=== PATIENT | male | born 1950 | race Caucasian/White ===

== ENCOUNTER → 2018-01-15 | Outpatient (CLI) | payer OTHER | END | disposition home or self-care (01) | LOC: KCIC US 08:06 | DX: I70.0 Atherosclerosis of aorta (principal); I25.10 Atherosclerotic heart disease of native coronary artery without angina pectoris; E04.2 Nontoxic multinodular goiter; J98.11 Atelectasis; R91.8 Other nonspecific abnormal finding of lung field; Z87.891 Personal history of nicotine dependence | CPT/HCPCS: 71250; 76770 ==

== ENCOUNTER → 2018-02-28 | Outpatient (CLI) | payer OTHER ==
[2018-02-28] MEDS: IOHEXOL 300 MG/ML 100ML VIAL. IV (10:44)
[2018-02-28] MEDS: IOHEXOL 240 MG/ML 50ML VIAL. PO (10:45)
== END | disposition home or self-care (01) ==
LOC: KCIC CT 09:23
DX: R19.02 Left upper quadrant abdominal swelling, mass and lump (principal); M51.36 Other intervertebral disc degeneration, lumbar region; M41.86 Other forms of scoliosis, lumbar region; I70.0 Atherosclerosis of aorta
CPT/HCPCS: 74178; Q9966; Q9967

== ENCOUNTER → 2018-08-27 | Outpatient (CLI) | payer OTHER ==
[~2018-08-27] MED LIST: AMLO10TA6 PO; CRESTOR10 MG PO; HYDR12.58 PO; IOHEXOL 240 MG/ML 50ML VIAL. PO ONE; IOHEXOL 300 MG/ML 100ML VIAL. IV ONE; PROAIR HFA8.5 GM INH
--- NOTE | 2018-08-27 15:33 | KCIC ---
CT ABD PELV W/ORAL IV CONTRAST Indication: Mass, identified on previous CT scan Exposure: One or more of the following individualized dose reduction techniques were utilized for this examination: 1. Automated exposure control 2. Adjustment of the mA and/or kV according to patient size 3. Use of iterative reconstruction technique. Comparison: February 28, 2018 Contrast: Intravenous contrast was given. Oral contrast was given. FINDINGS: Lower thorax: Lung bases are clear. Liver: Unremarkable Spleen: Unremarkable Pancreas: Unremarkable Adrenals: No evidence of mass. Kidneys: Small hypodense lesions of both kidneys, most likely cysts. The largest lesion on the left is stable since previous exam as is the largest lesion on the right. Urinary tracts: No hydronephrosis. Gallbladder: No calcified stone Lymph nodes: Small inguinal lymph nodes are stable. No pathologic lymph node enlargement. Vessels: * Aorta: Calcified. No aneurysm. * Major aortic branches: Calcifications at the major branches without occlusion. * Portal venous: Patent GI tract: Mild retained stool in the colon. No evidence of bowel obstruction. No evidence of acute colitis. Appendix is normal. Reproductive organs:No evidence of mass. Urinary bladder: Incompletely distended Peritoneum: No free fluid or pneumoperitoneum identified. Abdominal wall:Unremarkable Spine: Degenerative spondylosis. Right convexity scoliosis. Bones: Degenerative changes of both hips. Left upper quadrant mass is redemonstrated, measures slightly larger today. 6.9 cm transverse compared with 5.8 cm on similar previous slice. 5.2 cm AP compared with similar measurement previously. Measures 7.7 cm height, compared with 6.7 cm previously. IMPRESSION: Left upper quadrant mass has increased in size slightly since the previous study, with an overall similar morphology. Nonspecific, possible etiologies were discussed on the previous report. Electronically signed by: Yony Foster MD (08/27/2018 3:30 PM) [facility]
== END | disposition home or self-care (01) ==
LOC: KCIC CT 07:59
PROVIDERS: ATTEND Internal Medicine
DX: R19.02 Left upper quadrant abdominal swelling, mass and lump (principal); M47.896 Other spondylosis, lumbar region; M41.86 Other forms of scoliosis, lumbar region; I25.10 Atherosclerotic heart disease of native coronary artery without angina pectoris; Z87.891 Personal history of nicotine dependence
CPT/HCPCS: 74177; 82565; Q9966; Q9967

== ENCOUNTER 2018-10-23 15:59 | Emergency (ER) | payer OTHER ==
[~2018-10-23] VITALS: Ht 180.3 cm; Wt 106.6 kg
[~2018-10-23 15:59] MED LIST changes: -IOHEXOL 240 MG/ML 50ML VIAL. PO ONE; -IOHEXOL 300 MG/ML 100ML VIAL. IV ONE
[2018-10-23 16:16] VITALS: BP 164/81
[2018-10-23] MEDS ORDERED: MORPHINE SULFATE 10 MG/ML VIAL. IM ONE (16:30)
[2018-10-23] MEDS ORDERED: ONDANSETRON ODT 4 MG TAB.RAPDIS. PO ONE (16:30)
[2018-10-23] MEDS ORDERED: ORPHENADRINE CITRATE 60 MG/2 ML VIAL. IM ONE (16:30)
--- NOTE | 2018-10-23 16:30 | PHYS DOC ---
Past Medical History Past Medical History: Hypertension Past Surgical History: No Surgical History Alcohol Use: Rarely Drug Use: None Adult General Chief Complaint Chief Complaint: BACK PAIN OR INJURY HPI HPI Patient is a 68 year old male who presents with left-sided rib pain. Patient reports he slipped on the ice yesterday and fell onto his left side. He denies any hip or shoulder pain. He denies striking his head or loss of consciousness. He reports this afternoon, he coughed and felt something pop and has since had muscle spasm in that area. Review of Systems Review of Systems Constitutional: Denies fever or chills [] Respiratory: Denies shortness of breath [] Cardiovascular: No palpitations. GI: Denies abdominal pain, nausea, vomiting Musculoskeletal: Left posterior rib pain with muscle spasm Integument: Denies rash or skin lesions [] Neurologic: Denies headache, focal weakness or sensory changes [] All other systems were reviewed and found to be within normal limits, except as documented in this note. Current Medications Current Medications Current Medications Medications (Trade) Dose Ordered Sig/Philip Start Time Stop Time Status Last Admin Dose Admin Morphine Sulfate (Morphine Sulfate) 8 mg 1X ONCE 10/23/18 16:30 10/23/18 16:34 DC 10/23/18 17:01 8 MG Ondansetron HCl (Zofran Odt) 4 mg 1X ONCE 10/23/18 16:30 10/23/18 16:34 DC 10/23/18 16:59 4 MG Orphenadrine Citrate (Norflex) 60 mg 1X ONCE 10/23/18 16:30 10/23/18 16:34 DC 10/23/18 16:59 60 MG Allergies Allergies Allergies Coded Allergies Type Severity Reaction Last Updated Verified No Known Drug Allergies 02/28/18 No Physical Exam Physical Exam Constitutional: Well developed, well nourished, no acute distress, non-toxic appearance. [] HENT: Normocephalic, atraumatic Eyes: PERRLA, EOMI, conjunctiva normal, no discharge. [] Neck: Normal range of motion, no tenderness, supple, no stridor. [] Cardiovascular:Heart rate regular rhythm, no murmur [] Lungs & Thorax: Bilateral breath sounds clear to auscultation [] Skin: Warm, dry, no erythema, no rash. [] Back: Left posterior, lateral rib pain on palpation, muscle spasm over area of pain present. No tenderness Extremities: No tenderness, ROM intact Neurologic: Alert and oriented X 3, normal motor function, normal sensory function, no focal deficits noted. [] Psychologic: Affect normal, judgement normal, mood normal. [] Current Patient Data Vital Signs Vital Signs Date Time Temp Pulse Resp B/P (MAP) Pulse Ox O2 Delivery O2 Flow Rate FiO2 10/23/18 16:16 98.0 84 18 164/81 (108) 96 Room Air 98.0 EKG EKG [] Radiology/Procedures Radiology/Procedures PATIENT: SMITA COLON GACCOUNT: [id number]#: [id number] : 1950 LOCATION: ER AGE: 68 SEX: M EXAM STATUS: REG ER ORD. PHYSICIAN: NICOLASA JI APRN REASON: fall, pain PROCEDURE: RIBS LEFT AND PA CHEST Left RIBS with chest, 3 views, 10/23/2018: HISTORY: Fall, left-sided pain No left rib fracture is identified. There is no evidence of underlying pneumothorax, hemothorax or pulmonary infiltrate. The heart size is normal. There are mild scattered degenerative changes in the spine. IMPRESSION: No acute left rib abnormality is detected. Electronically signed by: Faizan Marcelino MD (10/23/2018 5:04 PM) [facility] DICTATED and SIGNED BY: FAIZAN MARCELINO MD DATE: 10/23/18 170 [] Course & Med Decision Making Course & Med Decision Making Pertinent Labs and Imaging studies reviewed. (See chart for details) Plan: Ice or heat, ibuprofen or Aleve, Lortab Rx, Flexeril Rx, follow-up with PCP, return precautions reviewed[] Dragon Disclaimer Dragon Disclaimer This electronic medical record was generated, in whole or in part, using a voice recognition dictation system. Departure Departure Impression: Primary Impression: Rib contusion Disposition: 01 HOME, SELF-CARE Condition: IMPROVED Referrals: DEQUAN OSPINA Jr, MD (PCP) Patient Instructions: Rib Contusion Scripts Hydrocodone/Apap 5-325 (NORCO 5-325 TABLET) 1 Each Tablet 1-2 TAB PO PRN Q6HRS PRN for PAIN, #20 TAB 0 Refills Prov: NICOLASA JI APRN 10/23/18 Cyclobenzaprine Hcl (CYCLOBENZAPRINE HCL) 10 Mg Tablet 1 TAB PO TID PRN for MUSCLE SPASMS, #30 TAB Prov: NICOLASA JI APRN 10/23/18 Problem Qualifiers Primary Impression: Rib contusion Encounter type: initial encounter Laterality: left Qualified Codes: S20.212A - Contusion of left front wall of thorax, initial encounter NICOLASA JI APRN Oct 23, 2018 16:30
--- NOTE | 2018-10-23 17:07 | RAD ---
Left RIBS with chest, 3 views, 10/23/2018: HISTORY: Fall, left-sided pain No left rib fracture is identified. There is no evidence of underlying pneumothorax, hemothorax or pulmonary infiltrate. The heart size is normal. There are mild scattered degenerative changes in the spine. IMPRESSION: No acute left rib abnormality is detected. Electronically signed by: Faizan Marcelino MD (10/23/2018 5:04 PM) [facility]
[2018-10-23] MEDS ORDERED: HYDR-3164 PO (17:11)
[2018-10-23] MEDS ORDERED: CYCL10TA2 PO (17:11)
== END 2018-10-23 17:25 | disposition home or self-care (01) ==
LOC: ER 15:59
DX: S20.212A Contusion of left front wall of thorax, initial encounter (principal); I10 Essential (primary) hypertension; W00.0XXA Fall on same level due to ice and snow, initial encounter; Y93.89 Activity, other specified; Y92.89 Other specified places as the place of occurrence of the external cause; Y99.8 Other external cause status
CPT/HCPCS: 71101; 96372; 99283; J2270; J2360; Q0162

== ENCOUNTER → 2019-01-14 | Outpatient (CLI) | payer OTHER ==
[2018-12-23 11:00] VITALS: BP 140/79
[~2019-01-14] MED LIST changes: +ALBU2.5V8 INH; -AMLO10TA6 PO; +AMLO10TA8 PO; +ASPI-630 PO; +BENA40TA3 PO; +CYCL10TA2 PO; +DOCU-109 PO; +HYDR-3164 PO; +IOHEXOL 240 MG/ML 50ML VIAL. PO ONE; +IOHEXOL 300 MG/ML 100ML VIAL. IV ONE; +MECL12.52 PO; +MECL25TA3 PO; +OMEG1CAP38 PO; +ONDA8TAB9 PO; +OXYC1TAB15 PO; -PROAIR HFA8.5 GM INH
--- NOTE | 2019-01-15 09:34 | KCIC ---
EXAM: CT Chest, Abdomen and Pelvis with IV contrast CLINICAL HISTORY: Malignant GI stromal tumor. Postop staging COMPARISON: 08/27/2018, 02/28/2018 CT chest 01/15/2018 TECHNIQUE: Helical CT of the chest, abdomen and pelvis was performed following the administration of intravenous contrast. Oral contrast was administered. Axial, coronal and sagittal reformatted images were generated. ---PQRS compliance statement - One or more of the following individualized dose reduction techniques were utilized for this study: 1. Automated exposure control 2. Adjustment of the mA and/or kV according to patient size 3. Use of iterative reconstruction technique--- FINDINGS: Chest: Linear opacities in the lingula and lower lobes likely scarring/atelectasis. A 4 mm groundglass nodule (series 01/03 image 39) in the posterior right lower lobe is stable to 01/15/2018. No suspicious lung nodule or mass is seen. No lobar consolidation. Vague groundglass opacities are seen in the right posterior paraspinal region adjacent to bulky lateral osteophytes. Coronary artery calcifications are seen. Heart is not enlarged. No pericardial effusion. Bilateral calcified thyroid nodules are seen including a 2.6 cm left thyroid nodule, grossly stable to prior CT 01/15/2018. No pleural effusion or pneumothorax. Prominent axillary lymph nodes are seen, not enlarged by size criteria. No thoracic lymphadenopathy by size criteria although prominent mediastinal and hilar lymph nodes are seen. For example a right pericardiac lymph node measures 7 mm short axis and a subcarinal lymph node measures 8 mm short axis. Abdomen and Pelvis: No focal liver lesion. Gallbladder is normal. No biliary ductal dilatation. Adrenal glands are normal. Pancreas is unremarkable. Symmetric nephrograms. Bilateral hypodense renal lesions are grossly stable to prior CT. No hydronephrosis or hydroureter. Changes of splenectomy are seen with small collection/fat infiltration inferior to the left hemidiaphragm measuring 4.4 x 1.7 cm (coronal series 9, image 47). Suture line is seen in the stomach immediately adjacent to this region of fat infiltration. This may represent postsurgical change from prior gastric mass/gastrointestinal stromal tumor resection. Moderate colonic stool content is seen. The appendix is not convincingly seen although no significant pericecal fat infiltration. No small or large bowel dilatation. No evidence for bowel obstruction. A few prominent mesenteric and retroperitoneal lymph nodes are seen, not enlarged by size criteria. The partially distended bladder is unremarkable. Dense atherosclerotic calcifications of aorta and main branches are seen. Bones: A few small sclerotic lesions are seen within the osseous structures, likely bone islands, unchanged. Degenerative changes of the spine are seen. No definite aggressive osseous lesion is seen. Old fracture of the left ninth and 10th ribs are seen. Rightward curvature of the lumbar spine apex L3. Apparent lucent lesion within the L1 vertebral body with internal trabeculated appearance is favored to represent a hemangioma and unchanged to 02/28/2018. IMPRESSION: 1. Postoperative changes of left gastric mass resection and splenectomy are seen. However there is fat infiltration and trace fluid in the operative bed, just below the left hemidiaphragm, possibly postsurgical although residual mass is not entirely excluded. Recommend close attention on follow-up. 2. No evidence for distant metastasis. No thoracic, abdominal or pelvic lymphadenopathy. 3. 4 mm right lower lobe lung nodule is stable. The additional smaller lung nodules seen on prior exam are not convincingly seen on today's examination. Electronically signed by: Gianfranco Lugo MD (01/15/2019 9:31 AM) [facility]
== END | disposition home or self-care (01) ==
LOC: KCIC CT 08:27
PROVIDERS: ATTEND Internal Medicine Hematology & Oncology
DX: C49.A2 Gastrointestinal stromal tumor of stomach (principal); R91.1 Solitary pulmonary nodule; I70.0 Atherosclerosis of aorta; E04.2 Nontoxic multinodular goiter; I25.10 Atherosclerotic heart disease of native coronary artery without angina pectoris; N28.89 Other specified disorders of kidney and ureter; I10 Essential (primary) hypertension; Z98.890 Other specified postprocedural states
CPT/HCPCS: 71260; 74177; Q9966; Q9967

== ENCOUNTER 2019-01-23 12:24 | Observation (INO) | payer OTHER ==
[~2019-01-23] VITALS: Ht 182.9 cm; Wt 99.4 kg
[~2019-01-23 12:24] MED LIST changes: -DOCU-109 PO; -IOHEXOL 240 MG/ML 50ML VIAL. PO ONE; -IOHEXOL 300 MG/ML 100ML VIAL. IV ONE; -MECL12.52 PO; -MECL25TA3 PO; -ONDA8TAB9 PO
--- NOTE | 2019-01-23 13:36 | EKG ---
[facility] [address] [place] [address] Test Date: 2019-01-23 Test Time: 12:39:53 Pat Name: SMITA COLON Department: Room: Gender: M Quick Technician: : 1950 Requested By: GHISLAINE MUNIZ Order Number: [id number] Reading MD: Veto Carreon MD Measurements Intervals [place] Rate: 82 P: 36 DC: 156 QRS: -1 QRSD: 96 T: 29 QT: 390 QTc: 459 Interpretive Statements SINUS RHYTHM NON-SPECIFIC ST/T CHANGES Electronically Signed On 01-28-2019 7:54:45 ORTHODONTIC LABORATORY TECHNICIAN by Veto Carreon MD
--- NOTE | 2019-01-23 13:39 | RAD ---
EXAM: Head CT without contrast. HISTORY: Dizziness. TECHNIQUE: Computed tomographic images of the head were obtained without contrast. *One or more of the following individualized dose reduction techniques were utilized for this examination: 1. Automated exposure control. 2. Adjustment of the mA and/or kV according to patient size. 3. Use of iterative reconstruction technique. COMPARISON: None. FINDINGS: There is no acute or subacute extra-axial or intraparenchymal hemorrhage. There is no mass effect or midline shift. There is no hydrocephalus. There are areas of decreased attenuation within the cerebral white matter, nonspecific and likely related to chronic small vessel disease. There are tiny right maxillary sinus mucous retention cysts. There is nonspecific fluid within the right mastoid air cells. No calvarial lesion is seen. The orbits are unremarkable. IMPRESSION: No acute intracranial findings. Electronically signed by: Marilyn Lopez MD (01/23/2019 1:36 PM) [facility]
[2019-01-23] MEDS ORDERED: MECLIZINE HCL 12.5 MG TABLET. PO ONE (14:30)
[2019-01-23] MEDS ORDERED: MECLIZINE HCL 12.5 MG TABLET. ONE (14:30)
[2019-01-23] MEDS ORDERED: ONDANSETRON PF 4 MG/2 ML VIAL. IV ONE (14:30)
[2019-01-23 14:34] LABS: BASO # 0.1 x10^3/uL (0.0-0.2); BASO % 1 % (0-3); EOS # 0.1 x10^3/uL (0.0-0.7); EOS % 1 % (0-3); HEMATOCRIT 41.4 % (39.0-53.0); HEMOGLOBIN 13.5 g/dL (13.0-17.5); LYMPH # 0.9 x10^3/uL (1.0-4.8); LYMPH % 8 % (24-48); MEAN CORPUSCULAR HEMOGLOBIN 30 pg (25-35); MEAN CORPUSCULAR HGB CONC 33 g/dL (31-37); MEAN CORPUSCULAR VOLUME 91 fL (79-100); MONO # 0.3 x10^3/uL (0.0-1.1); MONO % 3 % (0-9); NEUT # 9.7 x10^3uL (1.8-7.7); NEUT % 88 % (31-73); PLATELET COUNT 401 x10^3/uL (140-400); RED BLOOD COUNT 4.55 x10^6/uL (4.30-5.70); RED CELL DISTRIBUTION WIDTH 13.7 % (11.5-14.5)
--- NOTE | 2019-01-23 14:56 | PHYS DOC ---
Past Medical History Past Medical History: High Cholesterol, Hypertension, Other Additional Past Medical Histor: GIST TUMOR Past Surgical History: Other Additional Past Surgical Histo: SPLENECTOMY, PARTIAL STOMACH, GIST TUMOR Alcohol Use: None Drug Use: None Adult General Chief Complaint Chief Complaint: WEAKNESS/GENERALIZED HPI HPI 68-year-old male presenting the emergency department today with dizziness and lightheadedness along with nausea and started about 4:30 this morning. He denies any recent fall or headache. He describes his lightheadedness when he stands up. He has a past medical history of having a just tube or is currently undergoing chemotherapy. Review of systems is negative for chest pain shortness of breath abdominal pain fevers or chills. All other review of systems is negative unless otherwise noted in history of present illness. ED course: 68 yo male presenting the emergency department today with lightheadedness and dizziness. On arrival the patient's afebrile with normal heart rate. He is well-appearing on examination with a normal neurologic exam. Head CT is unremarkable along with CBC. Blood work is unremarkable along with urinalysis. Patient was able to relate in the emergency department without difficulty. Patient mildly improved with meclizine here in the emergency room. Physical exam suggestive of peripheral vertigo. Initially with plan to discharge the patient with oral meclizine. However after walking him he feels his vertigo come back. We will admit him and have neurology see him possible MRI. I spoke with Dr. Vela who accepts him for admission. Review of Systems Review of Systems SEE ABOVE. Current Medications Current Medications Current Medications Medications (Trade) Dose Ordered Sig/Philip Start Time Stop Time Status Last Admin Dose Admin Meclizine HCl (Antivert) 12.5 mg STK-MED ONCE 01/23/19 14:30 01/23/19 14:31 DC Ondansetron HCl (Zofran) 4 mg 1X ONCE 01/23/19 14:30 01/23/19 14:32 DC 01/23/19 14:35 4 MG Sodium Chloride 500 ml @ 500 mls/hr 1X ONCE 01/23/19 15:00 01/23/19 15:59 DC 01/23/19 15:00 500 MLS/HR Allergies Allergies Allergies Coded Allergies Type Severity Reaction Last Updated Verified Penicillins Allergy Intermediate 12/17/18 Yes simvastatin Allergy Unknown 01/23/19 Yes Physical Exam Physical Exam SEE ABOVE Constitutional: Well developed, well nourished, no acute distress, non-toxic appearance. HENT: Normocephalic, atraumatic, bilateral external ears normal, oropharynx moist, no oral exudates, nose normal. [] Eyes: PERRLA, EOMI, conjunctiva normal, no discharge. Neck: Normal range of motion, no tenderness, supple, no stridor. [] Cardiovascular:Heart rate regular rhythm, no murmur [] Lungs & Thorax: Bilateral breath sounds clear to auscultation Abdomen: Bowel sounds normal, soft, no tenderness, no masses, no pulsatile masses. Skin: Warm, dry, no erythema, no rash. [] Back: No tenderness, no CVA tenderness. Extremities: No tenderness, no cyanosis, no clubbing, ROM intact, no edema. [] Neurologic: Head impulse testing, nystagmus and skew is suggestive of peripheral vertigo. Patient has lateral rotatory denies diagnosed on lateral gaze to the right. No nystagmus when gazing to the left. Mental status: Awake oriented and alert x3 Cranial nerves: Extraocular movements intact, eyebrows kim bilaterally, smile symmetric, uvula elevation nl, shoulder shrug intact bilaterally, tongue protrusion normal DTRs: 2+ Sensation: equal and normal in all extremities Strength: 5/5 in upper and lower extremities bilaterally Psychologic: Affect normal, judgement normal, mood normal. [] Current Patient Data Vital Signs Vital Signs Date Time Temp Pulse Resp B/P (MAP) Pulse Ox O2 Delivery O2 Flow Rate FiO2 01/23/19 12:45 98.4 85 18 139/68 (91) 97 Room Air 98.4 Lab Values Laboratory Tests Test 01/23/19 14:20 01/23/19 14:50 01/23/19 16:25 White Blood Count 11.0 x10^3/uL (4.0-11.0) Red Blood Count 4.55 x10^6/uL (4.30-5.70) Hemoglobin 13.5 g/dL (13.0-17.5) Hematocrit 41.4 % (39.0-53.0) Mean Corpuscular Volume 91 fL (79-100) Mean Corpuscular Hemoglobin 30 pg (25-35) Mean Corpuscular Hemoglobin Concent 33 g/dL (31-37) Red Cell Distribution Width 13.7 % (11.5-14.5) Platelet Count 401 x10^3/uL (140-400) H Neutrophils (%) (Auto) 88 % (31-73) H Lymphocytes (%) (Auto) 8 % (24-48) L Monocytes (%) (Auto) 3 % (0-9) Eosinophils (%) (Auto) 1 % (0-3) Basophils (%) (Auto) 1 % (0-3) Neutrophils # (Auto) 9.7 x10^3uL (1.8-7.7) H Lymphocytes # (Auto) 0.9 x10^3/uL (1.0-4.8) L Monocytes # (Auto) 0.3 x10^3/uL (0.0-1.1) Eosinophils # (Auto) 0.1 x10^3/uL (0.0-0.7) Basophils # (Auto) 0.1 x10^3/uL (0.0-0.2) Segmented Neutrophils % 89 % (35-66) H Lymphocytes % 5 % (24-48) L Monocytes % 6 % (0-10) Platelet Estimate Increased (ADEQUATE) Polychromasia Slight Crenated Cell Present RBC Morphology Bizarre Forms Occ Sodium Level 144 mmol/L (136-145) Potassium Level 3.7 mmol/L (3.5-5.1) Chloride Level 108 mmol/L (98-107) H Carbon Dioxide Level 26 mmol/L (21-32) Anion Gap 10 (6-14) Blood Urea Nitrogen 12 mg/dL (8-26) Creatinine 0.8 mg/dL (0.7-1.3) Estimated GFR (Cockcroft-Gault) 96.7 BUN/Creatinine Ratio 15 (6-20) Glucose Level 121 mg/dL (70-99) H Calcium Level 8.8 mg/dL (8.5-10.1) Total Bilirubin 0.2 mg/dL (0.2-1.0) Aspartate Amino Transferase (AST) 16 U/L (15-37) Alanine Aminotransferase (ALT) 26 U/L (16-63) Alkaline Phosphatase 96 U/L (46-116) Troponin I Quantitative < 0.017 ng/mL (0.000-0.055) Total Protein 6.4 g/dL (6.4-8.2) Albumin 3.4 g/dL (3.4-5.0) Albumin/Globulin Ratio 1.1 (1.0-1.7) Urine Color Yellow Urine Clarity Clear Urine pH 7.5 Urine Specific [place] 1.020 Urine Protein Negative mg/dL (NEG-TRACE) Urine Glucose (UA) 100 mg/dL (NEG) Urine Ketones (Stick) 15 mg/dL (NEG) Urine Blood Negative (NEG) Urine Nitrite Negative (NEG) Urine Bilirubin Negative (NEG) Urine Urobilinogen Dipstick 0.2 mg/dL (0.2 mg/dL) Urine Leukocyte Esterase Negative (NEG) Urine RBC 0 /HPF (0-2) Urine WBC Occ /HPF (0-4) Urine Squamous Epithelial Cells Occ /LPF Urine Bacteria 0 /HPF (0-FEW) Urine Mucus Slight /LPF Laboratory Tests 01/23/19 14:20 Laboratory Tests 01/23/19 14:50 EKG EKG [] Radiology/Procedures Radiology/Procedures [] Course & Med Decision Making Course & Med Decision Making Pertinent Labs and Imaging studies reviewed. (See chart for details) [] Dragon Disclaimer Dragon Disclaimer This electronic medical record was generated, in whole or in part, using a voice recognition dictation system. Departure Departure Impression: Primary Impression: Vertigo Additional Impression: Peripheral vertigo Disposition: 09 ADMITTED INPATIENT Condition: STABLE Referrals: JAYME SINGH MD (PCP) Patient Instructions: Vertigo Scripts Meclizine Hcl (MECLIZINE HCL) 25 Mg Tablet 25 MG PO PRN Q24HRS PRN for DIZZINESS, #10 TAB Prov: GHISLAINE MUNIZ MD 01/23/19 Problem Qualifiers GHISLAINE MUNIZ MD Jan 23, 2019 14:56
[2019-01-23] MEDS ORDERED: IV NORMAL SALINE 500ML BAG 500 ML IV ONE (15:00)
[2019-01-23 15:08] LABS: CALCIUM 8.8 mg/dL (8.5-10.1); CREATININE 0.8 mg/dL (0.7-1.3); GFR 96.7; POTASSIUM 3.7 mmol/L (3.5-5.1)
[2019-01-23 15:16] LABS: ALBUMIN 3.4 g/dL (3.4-5.0); ALBUMIN/GLOBULIN RATIO 1.1 (1.0-1.7); TOTAL BILIRUBIN 0.2 mg/dL (0.2-1.0); TOTAL PROTEIN 6.4 g/dL (6.4-8.2)
[2019-01-23 16:03] LABS: % LYMPHS 5 % (24-48); % MONOS 6 % (0-10); % SEGS 89 % (35-66); PLT ESTIMATE INCREASED (ADEQUATE); POLYCHROMASIA SLIGHT
[2019-01-23 16:04] LABS: BIZZARE CELLS OCC
[2019-01-23 16:38] LABS: BILIRUBIN,URINE NEGATIVE (NEG); CLARITY,URINE CLEAR; COLOR,URINE YELLOW; NITRITE,URINE NEGATIVE (NEG); PH,URINE 7.5; PROTEIN,URINE NEGATIVE (NEG-TRACE); UROBILINOGEN,URINE 0.2 mg/dL (0.2 mg/dL)
[2019-01-23 16:47] LABS: BACTERIA,URINE 0 /HPF (0-FEW); RBC,URINE 0 /HPF (0-2); SQUAMOUS EPITHELIAL CELL,UR OCC /LPF; WBC,URINE OCC /HPF (0-4)
[2019-01-23] MEDS ORDERED: MECL25TA3 PO (16:52)
[2019-01-23] MEDS ORDERED: IV NORMAL SALINE 1000ML BAG 1,000 ML IV SCH (17:38)
[2019-01-23] MEDS ORDERED: ONDANSETRON PF 4 MG/2 ML VIAL. IV PRN ×2 (17:45→21:45)
[2019-01-23] MEDS ORDERED: MORPHINE SULFATE 2 MG/ML VIAL. IV PRN (17:45)
--- NOTE | 2019-01-23 19:18 | PDOC2 ---
NEUROLOGY CONSULT Date of Admission Date of Admission DATE: 01/23/19 TIME: 18:57 Reason for Consult Reason for Consult: IMPRESSION: Sudden onset severe dizziness. Vertigo. Ataxia. Gait instability. 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 HTN. HLD. 4 mm right LL nodule, stable. Over weight. RECOMMENDATIONS/PLAN: ASA 325 mg daily. Brain MRI w/o contrast. Meclizine 12.5 mg tid. Lab: see orders. Swallow test. Further evaluation considered. HISTORY OF THE PRESENT ILLNESS: 68-year-old male patient with above medical diseases and gastric mass received surgery and splenectomy in 11/2018 and received chem so far. He was last seen normal last night but woke up around 5;30 am this morning with symptoms of severe dizziness, vertigo, gait instability, ataxic gait. He came to the ER of [facility] after 8-9 hours after symptoms onset. No sensory or motor deficits noted. PAST MEDICAL HISTORY: High Cholesterol, Hypertension, GIST TUMOR PAST SURGERY HISTORY: SPLENECTOMY, PARTIAL STOMACH, GIST TUMOR. ALLERGY: Unknown MEDICATIONS: Refer to [facility] FAMILY HISTORY: His mother had breast cancer. SOCIAL HISTORY: Lives with his at home. Denies recent smoking, drinking, and illicit drug use. He smoked 1.5 pack of cigarettes a day for about 30 years but quit several years ago. REVIEW OF SYSTEMS: Constitutional: No cachexia. Head: No traumatic brain or head injury. Skin: No edema, or rash. Ear: No infection. Eyes: No vision loss or color blindness. Nose: No bleeding or purulent discharges. Hearing: No hearing decrease. Neck: No injury. Cardiac: HTN, HLD. Pulmonary: Former smoker. Small right LL nodule.. GI: Gastric mass s/o surgery.. Urinary/genital: No dysuria, incontinence, urinary retention. Endocrinologic: No cousin face, craniofacial dysmorphism, polydactyly.. Skeletomuscular: No muscular atrophy, deformity. Neurological: see HP. Psychiatric: Denies drug use/abuse. Otherwise, not [id number] review of systems. PHYSICAL EXAMINATION: General appearance is in acute distress. HEENT: Normocephalic and nontraumatic. Eyes, nose, ears, and throat are unremarkable. Neck is supple. No lymphadenopathy. No crepitus. Cardiovascular: S1, S2, regular rate and rhythm. Pulmonary: Clear to auscultation bilaterally. Abdomen: Bowel sounds are positive. Extremities: No rash, lesions, or edema. No restriction of range of motion NEUROLOGICAL EXAMINATION: Awake. Oriented to time, place and person. PERRL. No nystagmus noted. EOMI. CN: no focal findings. Muscle tone: within normal. Muscle strength: 5- DTR: 2 Plantar reflex: Flexor response bilaterally Gait: not examined in bed. Sensory exam: no abnormal findings. No cerebellar signs elicited. F-T-N test fine. Current Medications Current Medications Current Medications Ondansetron HCl (Zofran) 4 mg 1X ONCE IV Last administered on 01/23/19at 14:35 ; Start 01/23/19 at 14:30; Stop 01/23/19 at 14:32; Status DC Meclizine HCl (Antivert) 12.5 mg 1X ONCE PO Last administered on 01/23/19at 14: 35; Start 01/23/19 at 14:30; Stop 01/23/19 at 14:32; Status DC Meclizine HCl (Antivert) 12.5 mg STK-MED ONCE .ROUTE ; Start 01/23/19 at 14:30; Stop 01/23/19 at 14:31; Status DC Sodium Chloride 500 ml @ 500 mls/hr 1X ONCE IV Last administered on at 15:00; Start 01/23/19 at 15:00; Stop 01/23/19 at 15:59; Status DC Ondansetron HCl (Zofran) 4 mg PRN Q8HRS PRN IV NAUSEA/VOMITING; Start 01/23/19 at 17:45; Stop 01/24/19 at 17:44 Morphine Sulfate (Morphine Sulfate) 2 mg PRN Q2HR PRN IV PAIN; Start 01/23/19 at 17:45; Stop 01/24/19 at 17:44 Sodium Chloride 1,000 ml @ 100 mls/hr Q10H IV ; Start 01/23/19 at 17:38; Stop 01/24/19 at 17:37 Active Scripts Active Meclizine Hcl 25 Mg Tablet 25 Mg PO PRN Q24HRS PRN Percocet 5-325 Mg Tablet (Oxycodone/Acetaminophen) 1 Each Tablet 1 Tab PO PRN Q4HRS PRN Reported Benazepril Hcl 40 Mg Tablet 1 Tab PO DAILY Aspirin 81 Mg Tab.chew 1 Tab PO DAILY Hydrochlorothiazide Tablet (Hydrochlorothiazide) 12.5 Mg Tablet 1 Tab PO DAILY Amlodipine Besylate 10 Mg Tablet 10 Mg PO DAILY Crestor (Rosuvastatin Calcium) 10 Mg Tablet 1 Tab PO QHS Allergies Allergies: Allergies Coded Allergies Type Severity Reaction Last Updated Verified Penicillins Allergy Intermediate 12/17/18 Yes simvastatin Allergy Unknown 01/23/19 Yes ROS Review of System The patient denies any associated fevers, chills, headache, ear pain, rhinorrhea , sore throat, stiff neck, productive cough, chest pain, shortness of breath, back or flank pain, abdominal pain, nausea, vomiting, diarrhea, constipation, dysuria, rash, numbness, weakness, tingling, incontinence, difficulty ambulating, or diaphoresis. Physical Exam Physical Exam General: Well developed, well nourished, no acute distress, well appearing HEENT: Pupils equally round and reactive to light, EOMI, no discharge, normal conjunctiva Neck: Supple, no nuchal rigidity, no JVD, trachea midline, no tenderness Cardiac: RRR, no murmurs, no gallops, no rubs Chest/Lungs: CTAB, no wheeze, no rhonchi, no crackles Abdomen: soft, non-distended, no guarding, no peritoneal signs, non-tender Back: No tenderness Extremities: no edema, pulses intact, non-tender,capillary refill <3 sec bilateral upper and lower extremities, Neuro: Alert and oriented x 4, no focal deficits, normal speech Vitals Vitals: Vital Signs Date Time Temp Pulse Resp B/P (MAP) Pulse Ox O2 Delivery O2 Flow Rate FiO2 01/23/19 16:56 86 20 97 01/23/19 12:45 98.4 139/68 (91) Room Air 98.4 Labs Labs Laboratory Tests Test 01/23/19 14:20 01/23/19 14:50 01/23/19 16:25 White Blood Count 11.0 x10^3/uL (4.0-11.0) Red Blood Count 4.55 x10^6/uL (4.30-5.70) Hemoglobin 13.5 g/dL (13.0-17.5) Hematocrit 41.4 % (39.0-53.0) Mean Corpuscular Volume 91 fL (79-100) Mean Corpuscular Hemoglobin 30 pg (25-35) Mean Corpuscular Hemoglobin Concent 33 g/dL (31-37) Red Cell Distribution Width 13.7 % (11.5-14.5) Platelet Count 401 x10^3/uL (140-400) Neutrophils (%) (Auto) 88 % (31-73) Lymphocytes (%) (Auto) 8 % (24-48) Monocytes (%) (Auto) 3 % (0-9) Eosinophils (%) (Auto) 1 % (0-3) Basophils (%) (Auto) 1 % (0-3) Neutrophils # (Auto) 9.7 x10^3uL (1.8-7.7) Lymphocytes # (Auto) 0.9 x10^3/uL (1.0-4.8) Monocytes # (Auto) 0.3 x10^3/uL (0.0-1.1) Eosinophils # (Auto) 0.1 x10^3/uL (0.0-0.7) Basophils # (Auto) 0.1 x10^3/uL (0.0-0.2) Segmented Neutrophils % 89 % (35-66) Lymphocytes % 5 % (24-48) Monocytes % 6 % (0-10) Platelet Estimate Increased (ADEQUATE) Polychromasia Slight Crenated Cell Present RBC Morphology Bizarre Forms Occ Sodium Level 144 mmol/L (136-145) Potassium Level 3.7 mmol/L (3.5-5.1) Chloride Level 108 mmol/L (98-107) Carbon Dioxide Level 26 mmol/L (21-32) Anion Gap 10 (6-14) Blood Urea Nitrogen 12 mg/dL (8-26) Creatinine 0.8 mg/dL (0.7-1.3) Estimated GFR (Cockcroft-Gault) 96.7 BUN/Creatinine Ratio 15 (6-20) Glucose Level 121 mg/dL (70-99) Calcium Level 8.8 mg/dL (8.5-10.1) Total Bilirubin 0.2 mg/dL (0.2-1.0) Aspartate Amino Transf (AST/SGOT) 16 U/L (15-37) Alanine Aminotransferase (ALT/SGPT) 26 U/L (16-63) Alkaline Phosphatase 96 U/L (46-116) Troponin I Quantitative < 0.017 ng/mL (0.000-0.055) Total Protein 6.4 g/dL (6.4-8.2) Albumin 3.4 g/dL (3.4-5.0) Albumin/Globulin Ratio 1.1 (1.0-1.7) Urine Color Yellow Urine Clarity Clear Urine pH 7.5 Urine Specific [place] 1.020 Urine Protein Negative mg/dL (NEG-TRACE) Urine Glucose (UA) 100 mg/dL (NEG) Urine Ketones (Stick) 15 mg/dL (NEG) Urine Blood Negative (NEG) Urine Nitrite Negative (NEG) Urine Bilirubin Negative (NEG) Urine Urobilinogen Dipstick 0.2 mg/dL (0.2 mg/dL) Urine Leukocyte Esterase Negative (NEG) Urine RBC 0 /HPF (0-2) Urine WBC Occ /HPF (0-4) Urine Squamous Epithelial Cells Occ /LPF Urine Bacteria 0 /HPF (0-FEW) Urine Mucus Slight /LPF Laboratory Tests Test 01/23/19 14:20 01/23/19 14:50 01/23/19 16:25 White Blood Count 11.0 x10^3/uL (4.0-11.0) Red Blood Count 4.55 x10^6/uL (4.30-5.70) Hemoglobin 13.5 g/dL (13.0-17.5) Hematocrit 41.4 % (39.0-53.0) Mean Corpuscular Volume 91 fL (79-100) Mean Corpuscular Hemoglobin 30 pg (25-35) Mean Corpuscular Hemoglobin Concent 33 g/dL (31-37) Red Cell Distribution Width 13.7 % (11.5-14.5) Platelet Count 401 x10^3/uL (140-400) Neutrophils (%) (Auto) 88 % (31-73) Lymphocytes (%) (Auto) 8 % (24-48) Monocytes (%) (Auto) 3 % (0-9) Eosinophils (%) (Auto) 1 % (0-3) Basophils (%) (Auto) 1 % (0-3) Neutrophils # (Auto) 9.7 x10^3uL (1.8-7.7) Lymphocytes # (Auto) 0.9 x10^3/uL (1.0-4.8) Monocytes # (Auto) 0.3 x10^3/uL (0.0-1.1) Eosinophils # (Auto) 0.1 x10^3/uL (0.0-0.7) Basophils # (Auto) 0.1 x10^3/uL (0.0-0.2) Segmented Neutrophils % 89 % (35-66) Lymphocytes % 5 % (24-48) Monocytes % 6 % (0-10) Platelet Estimate Increased (ADEQUATE) Polychromasia Slight Crenated Cell Present RBC Morphology Bizarre Forms Occ Sodium Level 144 mmol/L (136-145) Potassium Level 3.7 mmol/L (3.5-5.1) Chloride Level 108 mmol/L (98-107) Carbon Dioxide Level 26 mmol/L (21-32) Anion Gap 10 (6-14) Blood Urea Nitrogen 12 mg/dL (8-26) Creatinine 0.8 mg/dL (0.7-1.3) Estimated GFR (Cockcroft-Gault) 96.7 BUN/Creatinine Ratio 15 (6-20) Glucose Level 121 mg/dL (70-99) Calcium Level 8.8 mg/dL (8.5-10.1) Total Bilirubin 0.2 mg/dL (0.2-1.0) Aspartate Amino Transf (AST/SGOT) 16 U/L (15-37) Alanine Aminotransferase (ALT/SGPT) 26 U/L (16-63) Alkaline Phosphatase 96 U/L (46-116) Troponin I Quantitative < 0.017 ng/mL (0.000-0.055) Total Protein 6.4 g/dL (6.4-8.2) Albumin 3.4 g/dL (3.4-5.0) Albumin/Globulin Ratio 1.1 (1.0-1.7) Urine Color Yellow Urine Clarity Clear Urine pH 7.5 Urine Specific [place] 1.020 Urine Protein Negative mg/dL (NEG-TRACE) Urine Glucose (UA) 100 mg/dL (NEG) Urine Ketones (Stick) 15 mg/dL (NEG) Urine Blood Negative (NEG) Urine Nitrite Negative (NEG) Urine Bilirubin Negative (NEG) Urine Urobilinogen Dipstick 0.2 mg/dL (0.2 mg/dL) Urine Leukocyte Esterase Negative (NEG) Urine RBC 0 /HPF (0-2) Urine WBC Occ /HPF (0-4) Urine Squamous Epithelial Cells Occ /LPF Urine Bacteria 0 /HPF (0-FEW) Urine Mucus Slight /LPF RAVIN MCLEOD MD Jan 23, 2019 19:18
[2019-01-23 19:25] VITALS: BP 142/75
[2019-01-23] MEDS: MECLIZINE HCL 12.5 MG TABLET. PO SCH (19:51)
[2019-01-23] MEDS: ASPIRIN 325 MG TABLET PO SCH (19:51)
[2019-01-23] MEDS ORDERED: ONDA8TAB9 PO (19:58)
--- NOTE | 2019-01-23 21:16 | PDOC1 ---
History and Physical Date of Admission Date of Admission DATE: 01/23/19 TIME: 21:16 Identification/Chief Complaint Chief Complaint seen in er woke up around 5;30 am this morning with symptoms of severe dizziness, vertigo, gait instability, ataxic gait. He came to the ER of [facility] after 8-9 hours after symptoms onset, unable to ambulate out of er this PM Past Medical History Past Medical History Past Medical History Cardiovascular: HTN Pulmonary: No pertinent hx GI: No pertinent hx Heme/Onc: GIST Tumor Hepatobiliary: No pertinent hx Psych: No pertinent hx Past Surgical History Past Surgical History: GASTRIC RESECTION Family History Family History he is retired from [employer] Family History: Coronary Artery Disease Social History Smoke: Quit ALCOHOL: rare OPERATIVE NOTE Date: Date: Dec 17, 2018 Pre-Op Diagnosis: Gastric tumor, spindle cell Post-Op Diagnosis: same, favor GIST Procedure Performed: Laparoscopic converted to open partial gastrectomy, splenectomy Surgeon: Marshall Pérez Asst: Dr. Carranza Anesthesia Type: GETA plus local Blood Loss: 550 Specimans Obtained: stomach, mass and spleen en bloc, additional gastric margin Findings: Moderated size (6cm) mass appearing to arise from wall of stomach on the superior aspect of the gastric greater curvature, adherent to spleen Cardiovascular: HTN Pulmonary: No pertinent hx GI: No pertinent hx Heme/Onc: No pertinent hx Hepatobiliary: No pertinent hx Psych: No pertinent hx Renal/: No pertinent hx Past Surgical History Past Surgical History: No pertinent history Family History Family History: Coronary Artery Disease, Hypertension Social History Smoke: Quit ALCOHOL: rare Drugs: None Current Problem List Problem List Problems Medical Problems: (1) Peripheral vertigo Status: Acute (2) Vertigo Status: Acute Current Medications Current Medications Current Medications Ondansetron HCl (Zofran) 4 mg 1X ONCE IV Last administered on 01/23/19at 14:35 ; Start 01/23/19 at 14:30; Stop 01/23/19 at 14:32; Status DC Meclizine HCl (Antivert) 12.5 mg 1X ONCE PO Last administered on 01/23/19at 14: 35; Start 01/23/19 at 14:30; Stop 01/23/19 at 14:32; Status DC Meclizine HCl (Antivert) 12.5 mg STK-MED ONCE .ROUTE ; Start 01/23/19 at 14:30; Stop 01/23/19 at 14:31; Status DC Sodium Chloride 500 ml @ 500 mls/hr 1X ONCE IV Last administered on at 15:00; Start 01/23/19 at 15:00; Stop 01/23/19 at 15:59; Status DC Ondansetron HCl (Zofran) 4 mg PRN Q8HRS PRN IV NAUSEA/VOMITING; Start 01/23/19 at 17:45; Stop 01/24/19 at 17:44 Morphine Sulfate (Morphine Sulfate) 2 mg PRN Q2HR PRN IV PAIN; Start 01/23/19 at 17:45; Stop 01/24/19 at 17:44 Sodium Chloride 1,000 ml @ 100 mls/hr Q10H IV Last administered on 01/23/19at 19:40; Start 01/23/19 at 17:38; Stop 01/24/19 at 17:37 Meclizine HCl (Antivert) 12.5 mg TID PO Last administered on 01/23/19at 19:51; Start 01/23/19 at 21:00 Aspirin (Jesica Aspirin) 325 mg [id number] PO Last administered on 01/23/19at 19: 51; Start 01/23/19 at 19:30 Active Scripts Active Reported Zofran (Ondansetron Hcl) 8 Mg Tablet 1 Tab PO Q8HRS Benazepril Hcl 40 Mg Tablet 1 Tab PO DAILY Aspirin 81 Mg Tab.chew 1 Tab PO DAILY Hydrochlorothiazide Tablet (Hydrochlorothiazide) 12.5 Mg Tablet 1 Tab PO DAILY Amlodipine Besylate 10 Mg Tablet 10 Mg PO DAILY Crestor (Rosuvastatin Calcium) 10 Mg Tablet 1 Tab PO QHS Allergies Allergies: Coded Allergies: Penicillins (Verified Allergy, Intermediate, 12/17/18) simvastatin (Verified Allergy, Unknown, 01/23/19) MUSCLE SORENESS ROS General: No: Chills, Night Sweats, Fatigue, Malaise, Appetite, Other PSYCHOLOGICAL ROS: No: Anxiety, Behavioral Disorder, Concentration difficultie , Decreased libido, Depression, Disorientation, Hallucinations, Hostility, Irritablity, Memory difficulties, Mood Swings, Obsessive thoughts, Physical abuse, Sexual abuse, Sleep disturbances, Suicidal ideation, Other Eyes: No Blurry vision, No Decreased vision, No Double vision, No Dry eyes, No Excessive tearing, No Eye Pain, No Itchy Eyes, No Loss of vision, No Photophobia , No Scotomata, No Uses contacts, No Uses glasses, No Other HEENT: No: Heacaches, Visual Changes, Hearing change, Nasal congestion, Nasal discharge, Oral lesions, Sinus pain, Sore Throat, Epistaxis, Sneezing, Snoring, Tinnitus, Vertigo, Vocal changes, Other ALLERGY AND IMMUNOLOGY: No: Hives, Insect Bite Sensitivity, Itchy/Watery Eyes, Nasal Congestion, Post Nasal Drip, Seasonal Allergies, Other Hematological and Lymphatic: No: Bleeding Problems, Blood Clots, Blood Transfusions, Brusing, Night Sweats, Pallor, Swollen Lymph Nodes, Other ENDOCRINE: No: Breast Changes, Galactorrhea, Hair Pattern Changes, Hot Flashes , Malaise/lethargy, Mood Swings, Palpitations, Polydipsia/polyuria, Skin Changes , Temperature Intolerance, Unexpected Weight Changes, Other Respiratory: No: Cough, Hemoptysis, Orthopnea, Pleuritic Pain, Shortness of breath, SOB with excertion, Sputum Changes, Stridor, Tachypnea, Wheezing, Other Cardiovascular: No Chest Pain, No Palpitations, No Orthopnea, No Paroxysmal Noc. Dyspnea, No Edema, No Lt Headedness, No Other Gastrointestinal: No Nausea, No Vomiting, No Abdominal Pain, No Diarrhea, No Constipation, No Melena, No Hematochezia, No Other Genitourinary: No Dysuria, No Frequency, No Incontinence, No Hematuria, No Retention, No Discharge, No Urgency, No Pain, No Flank Pain, No Other, No , No , No , No , No , No , No Musculoskeletal: Yes Gait Disturbance; No Joint Pain, No Joint Stiffness, No Joint Swelling, No Muscle Pain, No Muscular Weakness, No Pain In:, No Swelling In:, No Other Neurological: Yes Dizziness, Yes Impaired Coord/balance; No Behavorial Changes, No Bowel/Bladder ControlChng, No Confusion, No Gait Disturbance, No Headaches, No Memory Loss, No Numbness/Tingling, No Seizures, No Speech Problems, No Tremors, No Visual Changes, No Weakness, No Other Skin: No Dry Skin, No Eczema, No Hair Changes, No Lumps, No Mole Changes, No Mottling, No Nail Changes, No Pruritus, No Rash, No Skin Lesion Changes, No Other, No Acne Physical Exam Physical Exam Constitutional: Well developed, well nourished, mod acute distress, non-toxic appearance. HENT: Normocephalic, atraumatic, bilateral external ears normal, oropharynx moist, no oral exudates, nose normal. [] Eyes: PERRLA, EOMI, conjunctiva normal, no discharge. Neck: Normal range of motion, no tenderness, supple, no stridor. [] Cardiovascular:Heart rate regular rhythm, no murmur [] Lungs & Thorax: Bilateral breath sounds clear to auscultation Abdomen: Bowel sounds normal, soft, no tenderness, no masses, no pulsatile masses. Skin: Warm, dry, no erythema, no rash. [] Back: No tenderness, no CVA tenderness. Extremities: No tenderness, no cyanosis, no clubbing, ROM intact, no edema. [] Neurologic: Head impulse testing, nystagmus / suggestive of peripheral vertigo. Patient has lateral rotatory nystagmus lateral gaze to the right. No nystagmus when gazing to the lef General: Alert, Oriented X3, Cooperative, moderate distress HEENT: Atraumatic, PERRLA, EOMI, Mucous membr. moist/pink Lungs: Clear to auscultation, Normal air movement Heart: RRR, no thrills Breasts: Not examined Abdomen: Normal bowel sounds, Soft Rectal Exam: not examined Extremities: No clubbing, No cyanosis, No edema Skin: No rashes Neuro: Normal speech, Strength at 5/5 X4 ext, Normal tone, Cranial nerves 3-12 NL Psych/Mental Status: Mental status NL, Mood NL Vitals Vitals Vital Signs Date Time Temp Pulse Resp B/P (MAP) Pulse Ox O2 Delivery O2 Flow Rate FiO2 01/23/19 18:30 85 18 98 01/23/19 12:45 98.4 139/68 (91) Room Air 98.4 Labs Labs Laboratory Tests Test 01/23/19 14:20 01/23/19 14:50 01/23/19 16:25 White Blood Count 11.0 x10^3/uL (4.0-11.0) Red Blood Count 4.55 x10^6/uL (4.30-5.70) Hemoglobin 13.5 g/dL (13.0-17.5) Hematocrit 41.4 % (39.0-53.0) Mean Corpuscular Volume 91 fL (79-100) Mean Corpuscular Hemoglobin 30 pg (25-35) Mean Corpuscular Hemoglobin Concent 33 g/dL (31-37) Red Cell Distribution Width 13.7 % (11.5-14.5) Platelet Count 401 x10^3/uL (140-400) Neutrophils (%) (Auto) 88 % (31-73) Lymphocytes (%) (Auto) 8 % (24-48) Monocytes (%) (Auto) 3 % (0-9) Eosinophils (%) (Auto) 1 % (0-3) Basophils (%) (Auto) 1 % (0-3) Neutrophils # (Auto) 9.7 x10^3uL (1.8-7.7) Lymphocytes # (Auto) 0.9 x10^3/uL (1.0-4.8) Monocytes # (Auto) 0.3 x10^3/uL (0.0-1.1) Eosinophils # (Auto) 0.1 x10^3/uL (0.0-0.7) Basophils # (Auto) 0.1 x10^3/uL (0.0-0.2) Segmented Neutrophils % 89 % (35-66) Lymphocytes % 5 % (24-48) Monocytes % 6 % (0-10) Platelet Estimate Increased (ADEQUATE) Polychromasia Slight Crenated Cell Present RBC Morphology Bizarre Forms Occ Sodium Level 144 mmol/L (136-145) Potassium Level 3.7 mmol/L (3.5-5.1) Chloride Level 108 mmol/L (98-107) Carbon Dioxide Level 26 mmol/L (21-32) Anion Gap 10 (6-14) Blood Urea Nitrogen 12 mg/dL (8-26) Creatinine 0.8 mg/dL (0.7-1.3) Estimated GFR (Cockcroft-Gault) 96.7 BUN/Creatinine Ratio 15 (6-20) Glucose Level 121 mg/dL (70-99) Calcium Level 8.8 mg/dL (8.5-10.1) Total Bilirubin 0.2 mg/dL (0.2-1.0) Aspartate Amino Transf (AST/SGOT) 16 U/L (15-37) Alanine Aminotransferase (ALT/SGPT) 26 U/L (16-63) Alkaline Phosphatase 96 U/L (46-116) Troponin I Quantitative < 0.017 ng/mL (0.000-0.055) Total Protein 6.4 g/dL (6.4-8.2) Albumin 3.4 g/dL (3.4-5.0) Albumin/Globulin Ratio 1.1 (1.0-1.7) Urine Color Yellow Urine Clarity Clear Urine pH 7.5 Urine Specific [place] 1.020 Urine Protein Negative mg/dL (NEG-TRACE) Urine Glucose (UA) 100 mg/dL (NEG) Urine Ketones (Stick) 15 mg/dL (NEG) Urine Blood Negative (NEG) Urine Nitrite Negative (NEG) Urine Bilirubin Negative (NEG) Urine Urobilinogen Dipstick 0.2 mg/dL (0.2 mg/dL) Urine Leukocyte Esterase Negative (NEG) Urine RBC 0 /HPF (0-2) Urine WBC Occ /HPF (0-4) Urine Squamous Epithelial Cells Occ /LPF Urine Bacteria 0 /HPF (0-FEW) Urine Mucus Slight /LPF Laboratory Tests Test 01/23/19 14:20 01/23/19 14:50 01/23/19 16:25 White Blood Count 11.0 x10^3/uL (4.0-11.0) Red Blood Count 4.55 x10^6/uL (4.30-5.70) Hemoglobin 13.5 g/dL (13.0-17.5) Hematocrit 41.4 % (39.0-53.0) Mean Corpuscular Volume 91 fL (79-100) Mean Corpuscular Hemoglobin 30 pg (25-35) Mean Corpuscular Hemoglobin Concent 33 g/dL (31-37) Red Cell Distribution Width 13.7 % (11.5-14.5) Platelet Count 401 x10^3/uL (140-400) Neutrophils (%) (Auto) 88 % (31-73) Lymphocytes (%) (Auto) 8 % (24-48) Monocytes (%) (Auto) 3 % (0-9) Eosinophils (%) (Auto) 1 % (0-3) Basophils (%) (Auto) 1 % (0-3) Neutrophils # (Auto) 9.7 x10^3uL (1.8-7.7) Lymphocytes # (Auto) 0.9 x10^3/uL (1.0-4.8) Monocytes # (Auto) 0.3 x10^3/uL (0.0-1.1) Eosinophils # (Auto) 0.1 x10^3/uL (0.0-0.7) Basophils # (Auto) 0.1 x10^3/uL (0.0-0.2) Segmented Neutrophils % 89 % (35-66) Lymphocytes % 5 % (24-48) Monocytes % 6 % (0-10) Platelet Estimate Increased (ADEQUATE) Polychromasia Slight Crenated Cell Present RBC Morphology Bizarre Forms Occ Sodium Level 144 mmol/L (136-145) Potassium Level 3.7 mmol/L (3.5-5.1) Chloride Level 108 mmol/L (98-107) Carbon Dioxide Level 26 mmol/L (21-32) Anion Gap 10 (6-14) Blood Urea Nitrogen 12 mg/dL (8-26) Creatinine 0.8 mg/dL (0.7-1.3) Estimated GFR (Cockcroft-Gault) 96.7 BUN/Creatinine Ratio 15 (6-20) Glucose Level 121 mg/dL (70-99) Calcium Level 8.8 mg/dL (8.5-10.1) Total Bilirubin 0.2 mg/dL (0.2-1.0) Aspartate Amino Transf (AST/SGOT) 16 U/L (15-37) Alanine Aminotransferase (ALT/SGPT) 26 U/L (16-63) Alkaline Phosphatase 96 U/L (46-116) Troponin I Quantitative < 0.017 ng/mL (0.000-0.055) Total Protein 6.4 g/dL (6.4-8.2) Albumin 3.4 g/dL (3.4-5.0) Albumin/Globulin Ratio 1.1 (1.0-1.7) Urine Color Yellow Urine Clarity Clear Urine pH 7.5 Urine Specific [place] 1.020 Urine Protein Negative mg/dL (NEG-TRACE) Urine Glucose (UA) 100 mg/dL (NEG) Urine Ketones (Stick) 15 mg/dL (NEG) Urine Blood Negative (NEG) Urine Nitrite Negative (NEG) Urine Bilirubin Negative (NEG) Urine Urobilinogen Dipstick 0.2 mg/dL (0.2 mg/dL) Urine Leukocyte Esterase Negative (NEG) Urine RBC 0 /HPF (0-2) Urine WBC Occ /HPF (0-4) Urine Squamous Epithelial Cells Occ /LPF Urine Bacteria 0 /HPF (0-FEW) Urine Mucus Slight /LPF Images Images EXAM: Head CT without contrast. HISTORY: Dizziness. TECHNIQUE: Computed tomographic images of the head were obtained without contrast. *One or more of the following individualized dose reduction techniques were utilized for this examination: 1. Automated exposure control. 2. Adjustment of the mA and/or kV according to patient size. 3. Use of iterative reconstruction technique. COMPARISON: None. FINDINGS: There is no acute or subacute extra-axial or intraparenchymal hemorrhage. There is no mass effect or midline shift. There is no hydrocephalus. There are areas of decreased attenuation within the cerebral white matter, nonspecific and likely related to chronic small vessel disease. There are tiny right maxillary sinus mucous retention cysts. There is nonspecific fluid within the right mastoid air cells. No calvarial lesion is seen. The orbits are unremarkable. IMPRESSION: No acute intracranial findings. 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 gastric mass, POD #6, pain OK, path pending, Gastric tumor, spindle cell LIKELY htn, enalapril, labetolol, Hx tobaccoism, quit 2007 obesity, BMI 32 Sudden onset severe dizziness. Ataxia. Gait instability. 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 HTN. HLD. 4 mm right LL nodule, plan admit mri head neurology consult d/w DR MCLEOD tele neurochecks q 4 hrs iv fluid support antivert bedrest PT FOR Vestibular therapy if mri head wnl NAVEEN PERDOMO MD Jan 23, 2019 21:16
[2019-01-23] MEDS ORDERED: IOHEXOL 350 MG/ML 100 ML VIAL. IV ONE (21:30)
[2019-01-23] MEDS ORDERED: CONTRAST GIVEN. MC PRN ×2 (21:30→21:45)
[2019-01-23] MEDS ORDERED: LORazepam 0.5 MG TABLET PO PRN (21:45)
[2019-01-23] MEDS ORDERED: ZOLPIDEM 5 MG TABLET. PO PRN (21:45)
[2019-01-23] MEDS ORDERED: SODIUM PHOSPHATES 19/7GM 133 ML ENEMA. PR PRN (21:45)
[2019-01-23] MEDS ORDERED: ALBUTEROL SULFATE 2.5 MG/3 ML NEBU. NEB PRN (21:45)
[2019-01-23] MEDS ORDERED: MAG HYDROX/ALUMINUM HYD/SIMETH 30 ML ORAL.SUSP PO PRN (21:45)
[2019-01-23] MEDS ORDERED: DOCUSATE SODIUM 100 MG CAPSULE. PO PRN (21:45)
[2019-01-23] MEDS ORDERED: cloNIDine HCL 0.1 MG TABLET PO PRN (21:45)
[2019-01-23] MEDS ORDERED: guaiFENesin ORAL 200 MG/10 ML LIQUID. PO PRN (21:45)
[2019-01-23] MEDS ORDERED: 0.9 % SODIUM CHLORIDE 3ML DISP.SYRIN. IV PRN (21:45)
[2019-01-23] MEDS ORDERED: ACETAMINOPHEN 325 MG TABLET. PO PRN (21:45)
[2019-01-23] MEDS ORDERED: diphenhydrAMINE 50 MG/ML VIAL IVP PRN (21:45)
[2019-01-23 21:59] LABS: BARBITURATES NEG (NEG); BENZODIAZEPINES NEG (NEG); CANNABINOIDS NEG (NEG); COCAINE NEG (NEG); METHADONE NEG (NEG); OPIATES NEG (NEG); PHENCYCLIDINE NEG (NEG)
[2019-01-23] MEDS: IV NORMAL SALINE 1000ML BAG 1,000 ML IV SCH (22:00)
[2019-01-23] MEDS ORDERED: IOHEXOL 300 MG/ML 100ML VIAL. IV ONE (22:00)
[2019-01-23 22:04] LABS: AMPHETAMINE/METHAMPHETAMINE NEG (NEG)
--- NOTE | 2019-01-23 22:17 | NUR ---
Sched IVF @ 2200 wasnt administered, Same fluids still running.
--- NOTE | 2019-01-23 22:40 | RAD ---
PQRS Compliance statement: One or more of the following individualized dose reduction techniques were utilized for this examination: 1. Automated exposure control. 2. Adjustment of the mA and/or kV according to patient size. 3. Use of iterative reconstruction technique. Indication:vertigo, dizzy; eval for cva; Omni 300, 75ml TECHNIQUE: CT angiogram of the head with IV contrast with multiplanar MIP reformats. 3-D volume rendering postprocessing was performed on a dedicated workstation. Calculation of stenosis performed using NASCET like criteria. COMPARISON: CT had from the same day noncontrast FINDINGS: The bilateral A1, A2, A3 segments of the CHRIS are patent. Slightly thin caliber A1 segment of the right CHRIS. The bilateral M1, M2, M3 segments of the MCA are patent. Basilar artery is patent. Bilateral P1, P2, P3 segments of the SPRAY I PAINTER are patent. Bilateral superior cerebellar arteries are patent. Right AICA is patent. Left AICA not visualized likely hypoplastic. Bilateral V4 segments of the vertebral arteries are patent. Left PICA is visualized and is patent. Right PICA not visualized likely hypoplastic. Bilateral extracranial ICA are patent. Bilateral cavernous and petrous segments of the ICA are patent. Bilateral extracranial ICA are patent. Mild atherosclerotic disease seen in the bilateral carotid bulbs, right more than left. No significant ICA narrowing. Moderate atherosclerotic disease seen in the proximal left ECA causing at least 70 percent stenosis bilateral common carotid arteries are patent. Bilateral subclavian arteries are patent. Visualized superior mediastinum within normal limits. Conventional arch anatomy. Complex left thyroid lobe nodule measuring 3.0 x 2.3 cm and right thyroid lobe nodule measuring 1.3 cm. No enlarged deep cervical adenopathy. The major dural venous sinuses are patent. Bilateral ophthalmic arteries are patent. Orbits within normal limits. The nasopharynx, oropharynx and hypopharynx within normal limits. Visualized lungs are clear. No suspicious bony lesion. The paranasal sinuses and mastoid air cells are clear. Multilevel degenerative disease in the cervical spine. IMPRESSION: 1. The major intracranial and neck arteries are patent. See above for details. 2. Bilateral thyroid nodules. Nonemergent ultrasound of the thyroid recommended. Electronically signed by: Easton Espino DO (01/23/2019 10:36 PM) [facility]
[2019-01-23 23:00] VITALS: BP 136/78
[2019-01-24 03:00] VITALS: BP 111/60
[2019-01-24 05:08] LABS: BASO # 0.1 x10^3/uL (0.0-0.2); BASO % 1 % (0-3); EOS # 0.3 x10^3/uL (0.0-0.7); EOS % 4 % (0-3); HEMATOCRIT 37.1 % (39.0-53.0); HEMOGLOBIN 12.1 g/dL (13.0-17.5); LYMPH # 1.8 x10^3/uL (1.0-4.8); LYMPH % 23 % (24-48); MEAN CORPUSCULAR HEMOGLOBIN 30 pg (25-35); MEAN CORPUSCULAR HGB CONC 33 g/dL (31-37); MEAN CORPUSCULAR VOLUME 92 fL (79-100); MONO # 0.6 x10^3/uL (0.0-1.1); MONO % 8 % (0-9); NEUT % 64 % (31-73); PLATELET COUNT 353 x10^3/uL (140-400); RED BLOOD COUNT 4.05 x10^6/uL (4.30-5.70); RED CELL DISTRIBUTION WIDTH 13.5 % (11.5-14.5); WHITE BLOOD COUNT 7.8 x10^3/uL (4.0-11.0)
[2019-01-24 05:44] LABS: CALCIUM 8.4 mg/dL (8.5-10.1); CREATININE 0.8 mg/dL (0.7-1.3); GFR 96.7; POTASSIUM 3.1 mmol/L (3.5-5.1)
[2019-01-24 05:49] LABS: CHOLESTEROL/HDL RATIO 3.5
[2019-01-24] MEDS: IV NORMAL SALINE 1000ML BAG 1,000 ML IV SCH (06:26)
[2019-01-24 07:00] VITALS: BP 122/70
--- NOTE | 2019-01-24 08:57 | NUR ---
SW following pt for anticipated dc needs. Chart reviewed. Pt lives at home with spouse. PT/OT pending. SW will await for PT/OT recommendation to evaluate dc needs. Will continue to follow.
[2019-01-24] MEDS: ASPIRIN 325 MG TABLET PO SCH (08:59)
[2019-01-24] MEDS: MECLIZINE HCL 12.5 MG TABLET. PO SCH ×2 (08:59→14:06)
[2019-01-24] MEDS ORDERED: ENOXAPARIN 40 MG/0.4 ML SYRINGE. SQ SCH (09:00)
--- NOTE | 2019-01-24 10:59 | CARD ---
MR#: [id number] Date of Study: 01/24/2019 Ordering Physician: NAVEEN PERDOMO, Referring Physician: NAVEEN PERDOMO, Tech: Ivett Navarro BHAVANI APPROVED REPORT EXAM: Two-dimensional and M-mode echocardiogram with Doppler and color Doppler. Other Information Quality : GoodHR: 86bpm Rhythm : NSR INDICATION CVA/TIA 2D DIMENSIONS RVDd3.6 (2.9-3.5cm)Left Atrium(2D)3.7 (1.6-4.0cm) IVSd1.1 (0.7-1.1cm)Aortic Root(2D)3.6 (2.0-3.7cm) LVDd5.1 (3.9-5.9cm)LVOT Diameter2.1 (1.8-2.4cm) PWd1.2 (0.7-1.1cm)LVDs3.6 (2.5-4.0cm) FS (%) 29.6 %SV69.0 ml LVEF(%)56.3 (>50%) M-Mode DIMENSIONS Left Atrium(MM)4.57 (2.5-4.0cm)Aortic Root3.69 (2.2-3.7cm) Aortic Valve AoV Peak Kg.145.6cm/sAoV VTI29.2cm AO Peak GR.8.5mmHgLVOT Peak Kg.96.2cm/s AO Mean GR.4mmHgAVA (VMAX)2.33cm2 [place] (VTI)2.30cm2 Mitral Valve MV E Ehmmnowy76.4cm/sMV DECEL [id number] MV A Iyvkhrdo700.4cm/sE/A Ratio1.0 MV A Ggbvanln76qo Pulmonary Valve PV Peak Ecdjxllp388.3cm/s Tricuspid Valve TR P. Ioivhohi331yc/sRAP ULVSLEVZ5idHu TR Peak Gr.17hlZmMSDX98poEy Pulmonary Vein S1 Stbiazwt76.1cm/sD2 Ojbnqcsk86.5cm/s PVa cffxstlt49sihq LEFT VENTRICLE The left ventricle is normal size. There is borderline to mild concentric left ventricular hypertroph y. The left ventricular systolic function is normal. The Ejection Fraction is 55-60%. There is normal LV segmental wall motion. Transmitral Doppler flow pattern is Grade II-pseudonormal filling dynamics . RIGHT VENTRICLE The right ventricle is normal size. There is normal right ventricular wall thickness. The right ventr icular systolic function is normal. ATRIA The left atrium size is normal. The right atrium size is normal. The interatrial septum is intact wit h no evidence for an atrial septal defect or patent foramen ovale as noted on 2-D or Doppler imaging. AORTIC VALVE The aortic valve is thickened but opens well. The aortic valve is trileaflet. Doppler and Color Flow revealed no significant aortic regurgitation. There is no significant aortic valvular stenosis. MITRAL VALVE The mitral valve is normal in structure and function. There is no evidence of mitral valve prolapse. There is no mitral valve stenosis. Doppler and Color-flow revealed trace mitral regurgitation. TRICUSPID VALVE The tricuspid valve is normal in structure and function. Doppler and Color Flow revealed trace tricus pid regurgitation. The PA pressure was estimated at 31 mmHg. There is no tricuspid valve prolapse or vegetation. There is no tricuspid valve stenosis. PULMONIC VALVE The pulmonic valve is not well visualized. GREAT VESSELS The aortic root is mildly enlarged. The ascending aorta is Mildly dilated. The IVC is normal in size and collapses >50% with inspiration. PERICARDIAL EFFUSION There is no evidence of significant pericardial effusion. Critical Notification Critical Value: No <Conclusion> The left ventricular systolic function is normal. The Ejection Fraction is 55-60%. There is normal LV segmental wall motion. Trace mitral regurgitation. Trace tricuspid regurgitation. The PA pressure was estimated at 31 mmHg. There is no evidence of significant pericardial effusion. Signed by : Jaspreet Mcbride, Electronically Approved : 01/24/2019 10:58:48
[2019-01-24] MEDS ORDERED: MECL12.52 PO (12:25)
[2019-01-24] MEDS ORDERED: DOCU-109 PO (12:25)
--- NOTE | 2019-01-24 13:12 | PDOC ---
PROGRESS NOTES Assessment Assessment Sudden onset severe dizziness on 01/23/19, minimal symptoms then. Vertigo on 01/23/19 resolved. Ataxia on 01/23/19, resolved. Gait instability on 01/23/19 resolved. 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 HTN. HLD. 4 mm right LL nodule, stable. Bilateral thyroid nodules. Over weight. RECOMMENDATIONS/PLAN: Continue ASA 325 mg daily. Continue Meclizine 12.5 mg tid for 1 week. CTA performed was negative. Evaluation thyroid nodules per medical team. FU with Neurology next week. HISTORY OF THE PRESENT ILLNESS: 68-year-old male patient with above medical diseases and gastric mass received surgery and splenectomy in 11/2018 and received chem so far. He was last seen normal last night but woke up around 5;30 am this morning with symptoms of severe dizziness, vertigo, gait instability, ataxic gait. He came to the ER of [facility] after 8-9 hours after symptoms onset. No sensory or motor deficits noted. PAST MEDICAL HISTORY: High Cholesterol, Hypertension, GIST TUMOR PAST SURGERY HISTORY: SPLENECTOMY, PARTIAL STOMACH, GIST TUMOR. ALLERGY: Unknown MEDICATIONS: Refer to [facility] FAMILY HISTORY: His mother had breast cancer. SOCIAL HISTORY: Lives with his at home. Denies recent smoking, drinking, and illicit drug use. He smoked 1.5 pack of cigarettes a day for about 30 years but quit several years ago. REVIEW OF SYSTEMS: Constitutional: No cachexia. Head: No traumatic brain or head injury. Skin: No edema, or rash. Ear: No infection. Eyes: No vision loss or color blindness. Nose: No bleeding or purulent discharges. Hearing: No hearing decrease. Neck: No injury. Cardiac: HTN, HLD. Pulmonary: Former smoker. Small right LL nodule.. GI: Gastric mass s/o surgery.. Urinary/genital: No dysuria, incontinence, urinary retention. Endocrinologic: No cousin face, craniofacial dysmorphism, polydactyly.. Skeletomuscular: No muscular atrophy, deformity. Neurological: see HP. Psychiatric: Denies drug use/abuse. Otherwise, not [id number] review of systems. PHYSICAL EXAMINATION: General appearance is no acute distress. HEENT: Normocephalic and nontraumatic. Eyes, nose, ears, and throat are unremarkable. Neck is supple. No lymphadenopathy. No crepitus. Cardiovascular: S1, S2, regular rate and rhythm. Pulmonary: Clear to auscultation bilaterally. Abdomen: Bowel sounds are positive. Extremities: No rash, lesions, or edema. No restriction of range of motion NEUROLOGICAL EXAMINATION: Awake. Oriented to time, place and person. PERRL. No nystagmus noted. EOMI. CN: no focal findings. Muscle tone: within normal. Muscle strength: 5 DTR: 2 Plantar reflex: Flexor response bilaterally Gait: At his baseline normal. Sensory exam: no abnormal findings. No cerebellar signs elicited. F-T-N test accurate. Objective Objective Vital Signs Date Time Temp Pulse Resp B/P (MAP) Pulse Ox O2 Delivery O2 Flow Rate FiO2 01/24/19 08:00 Room Air 01/24/19 07:00 98.0 67 18 122/70 (87) 99 98.0 Intake and Output 01/24/19 07:00 Intake Total 500 ml Output Total 950 ml Balance -450 ml Intake Oral 0 ml IV Total 500 ml Output Urine Total 950 ml # Voids 2 Vitals Signs Vitals VS - Last 72 Hours, by Label Date Time Temp Pulse Resp B/P (MAP) Pulse Ox O2 Delivery O2 Flow Rate FiO2 01/24/19 08:00 Room Air 01/24/19 07:00 98.0 67 18 122/70 (87) 99 Room Air 98.0 01/24/19 03:00 98.3 69 18 111/60 (77) 95 Room Air 98.3 01/23/19 23:00 98.5 72 18 136/78 (97) 95 Room Air 98.5 01/23/19 20:00 Room Air 01/23/19 19:25 98.3 82 18 142/75 (97) 96 Room Air 98.3 01/23/19 18:30 85 18 98 01/23/19 17:30 84 18 98 01/23/19 16:56 86 20 97 01/23/19 16:31 82 20 97 01/23/19 13:02 80 18 01/23/19 12:45 98.4 85 18 139/68 (91) 97 Room Air 98.4 Laboratory Laboratory Laboratory Tests Test 01/23/19 14:20 01/23/19 14:50 01/23/19 16:25 01/23/19 21:30 White Blood Count 11.0 x10^3/uL (4.0-11.0) Red Blood Count 4.55 x10^6/uL (4.30-5.70) Hemoglobin 13.5 g/dL (13.0-17.5) Hematocrit 41.4 % (39.0-53.0) Mean Corpuscular Volume 91 fL (79-100) Mean Corpuscular Hemoglobin 30 pg (25-35) Mean Corpuscular Hemoglobin Concent 33 g/dL (31-37) Red Cell Distribution Width 13.7 % (11.5-14.5) Platelet Count 401 x10^3/uL (140-400) Neutrophils (%) (Auto) 88 % (31-73) Lymphocytes (%) (Auto) 8 % (24-48) Monocytes (%) (Auto) 3 % (0-9) Eosinophils (%) (Auto) 1 % (0-3) Basophils (%) (Auto) 1 % (0-3) Neutrophils # (Auto) 9.7 x10^3uL (1.8-7.7) Lymphocytes # (Auto) 0.9 x10^3/uL (1.0-4.8) Monocytes # (Auto) 0.3 x10^3/uL (0.0-1.1) Eosinophils # (Auto) 0.1 x10^3/uL (0.0-0.7) Basophils # (Auto) 0.1 x10^3/uL (0.0-0.2) Segmented Neutrophils % 89 % (35-66) Lymphocytes % 5 % (24-48) Monocytes % 6 % (0-10) Platelet Estimate Increased (ADEQUATE) Polychromasia Slight Crenated Cell Present RBC Morphology Bizarre Forms Occ Sodium Level 144 mmol/L (136-145) Potassium Level 3.7 mmol/L (3.5-5.1) Chloride Level 108 mmol/L (98-107) Carbon Dioxide Level 26 mmol/L (21-32) Anion Gap 10 (6-14) Blood Urea Nitrogen 12 mg/dL (8-26) Creatinine 0.8 mg/dL (0.7-1.3) Estimated GFR (Cockcroft-Gault) 96.7 BUN/Creatinine Ratio 15 (6-20) Glucose Level 121 mg/dL (70-99) Calcium Level 8.8 mg/dL (8.5-10.1) Total Bilirubin 0.2 mg/dL (0.2-1.0) Aspartate Amino Transf (AST/SGOT) 16 U/L (15-37) Alanine Aminotransferase (ALT/SGPT) 26 U/L (16-63) Alkaline Phosphatase 96 U/L (46-116) Troponin I Quantitative < 0.017 ng/mL (0.000-0.055) Total Protein 6.4 g/dL (6.4-8.2) Albumin 3.4 g/dL (3.4-5.0) Albumin/Globulin Ratio 1.1 (1.0-1.7) Urine Color Yellow Urine Clarity Clear Urine pH 7.5 Urine Specific [place] 1.020 Urine Protein Negative mg/dL (NEG-TRACE) Urine Glucose (UA) 100 mg/dL (NEG) Urine Ketones (Stick) 15 mg/dL (NEG) Urine Blood Negative (NEG) Urine Nitrite Negative (NEG) Urine Bilirubin Negative (NEG) Urine Urobilinogen Dipstick 0.2 mg/dL (0.2 mg/dL) Urine Leukocyte Esterase Negative (NEG) Urine RBC 0 /HPF (0-2) Urine WBC Occ /HPF (0-4) Urine Squamous Epithelial Cells Occ /LPF Urine Bacteria 0 /HPF (0-FEW) Urine Mucus Slight /LPF Urine Opiates Screen Neg (NEG) Urine Methadone Screen Neg (NEG) Urine Barbiturates Neg (NEG) Urine Phencyclidine Screen Neg (NEG) Urine Amphetamine/Methamphetamine Neg (NEG) Urine Benzodiazepines Screen Neg (NEG) Urine Cocaine Screen Neg (NEG) Urine Cannabinoids Screen Neg (NEG) Urine Ethyl Alcohol Neg (NEG) Test 01/24/19 04:20 White Blood Count 7.8 x10^3/uL (4.0-11.0) Red Blood Count 4.05 x10^6/uL (4.30-5.70) Hemoglobin 12.1 g/dL (13.0-17.5) Hematocrit 37.1 % (39.0-53.0) Mean Corpuscular Volume 92 fL (79-100) Mean Corpuscular Hemoglobin 30 pg (25-35) Mean Corpuscular Hemoglobin Concent 33 g/dL (31-37) Red Cell Distribution Width 13.5 % (11.5-14.5) Platelet Count 353 x10^3/uL (140-400) Neutrophils (%) (Auto) 64 % (31-73) Lymphocytes (%) (Auto) 23 % (24-48) Monocytes (%) (Auto) 8 % (0-9) Eosinophils (%) (Auto) 4 % (0-3) Basophils (%) (Auto) 1 % (0-3) Neutrophils # (Auto) 5.0 x10^3uL (1.8-7.7) Lymphocytes # (Auto) 1.8 x10^3/uL (1.0-4.8) Monocytes # (Auto) 0.6 x10^3/uL (0.0-1.1) Eosinophils # (Auto) 0.3 x10^3/uL (0.0-0.7) Basophils # (Auto) 0.1 x10^3/uL (0.0-0.2) Sodium Level 145 mmol/L (136-145) Potassium Level 3.1 mmol/L (3.5-5.1) Chloride Level 110 mmol/L (98-107) Carbon Dioxide Level 25 mmol/L (21-32) Anion Gap 10 (6-14) Blood Urea Nitrogen 8 mg/dL (8-26) Creatinine 0.8 mg/dL (0.7-1.3) Estimated GFR (Cockcroft-Gault) 96.7 Glucose Level 119 mg/dL (70-99) Calcium Level 8.4 mg/dL (8.5-10.1) Triglycerides Level 113 mg/dL (0-150) Cholesterol Level 145 mg/dL (0-200) LDL Cholesterol, Calculated 80 mg/dL (0-100) VLDL Cholesterol, Calculated 23 mg/dL (0-40) Non-HDL Cholesterol Calculated 103 mg/dL (0-129) HDL Cholesterol 42 mg/dL (40-60) Cholesterol/HDL Ratio 3.5 Medication Medications Current Medications Acetaminophen (Tylenol) 650 mg PRN Q4HRS PRN PO TEMP OVER 100.4F OR MILD PAIN; Start 01/23/19 at 21:45 Al Hydroxide/Mg Hydroxide (Mylanta Plus Xs) 30 ml PRN DAILY PRN PO HEARTBURN / GAS; Start 01/23/19 at 21:45 Albuterol Sulfate (Ventolin Neb Soln) 2.5 mg PRN Q4HRS PRN NEB SHORTNESS OF BREATH; Start 01/23/19 at 21:45 Aspirin (Jesica Aspirin) 325 mg DAILYWBKFT PO Last administered on 01/24/19at 08: 59; Start 01/23/19 at 19:30 Clonidine HCl (Catapres) 0.1 mg PRN Q6HRS PRN PO SBP>160 OR DBP>90; Start 01/23 at 21:45 Diphenhydramine HCl (Benadryl) 25 mg PRN Q4HRS PRN IVP ITCHING; Start 01/23/19 at 21:45 Docusate Sodium (Colace) 100 mg PRN BID PRN PO CONSTIPATION 1ST CHOICE; Start 01/23/19 at 21:45 Enoxaparin Sodium (Lovenox 40mg Syringe) 40 mg DAILY SQ Last administered on 01/24/19at 08:59; Start 01/24/19 at 09:00 Guaifenesin (Robitussin) 200 mg PRN Q4HRS PRN PO COUGH 1ST CHOICE; Start at 21:45 Info (CONTRAST GIVEN -- Rx MONITORING) 1 each PRN DAILY PRN MC SEE COMMENTS; Start 01/23/19 at 21:30; Stop 01/25/19 at 21:29 Info (CONTRAST GIVEN -- Rx MONITORING) 1 each PRN DAILY PRN MC SEE COMMENTS; Start 01/23/19 at 21:45; Stop 01/25/19 at 21:44 Iohexol (Omnipaque 300 Mg/ml) 75 ml 1X ONCE IV Last administered on 01/23/19at 22:13; Start 01/23/19 at 22:00; Stop 01/23/19 at 22:01; Status DC Iohexol (Omnipaque 350 Mg/ml) 75 ml 1X ONCE IV ; Start 01/23/19 at 21:30; Stop 01/23/19 at 21:31; Status DC Lorazepam (Ativan) 0.5 mg PRN Q4HRS PRN PO ANXIETY / AGITATION; Start 01/23/19 at 21:45 Meclizine HCl (Antivert) 12.5 mg 1X ONCE PO Last administered on 01/23/19at 14: 35; Start 01/23/19 at 14:30; Stop 01/23/19 at 14:32; Status DC Meclizine HCl (Antivert) 12.5 mg STK-MED ONCE .ROUTE ; Start 01/23/19 at 14:30; Stop 01/23/19 at 14:31; Status DC Meclizine HCl (Antivert) 12.5 mg TID PO Last administered on 01/24/19at 08:59; Start 01/23/19 at 21:00 Morphine Sulfate (Morphine Sulfate) 2 mg PRN Q2HR PRN IV PAIN; Start 01/23/19 at 17:45; Stop 01/24/19 at 17:44 Ondansetron HCl (Zofran) 4 mg 1X ONCE IV Last administered on 01/23/19at 14:35 ; Start 01/23/19 at 14:30; Stop 01/23/19 at 14:32; Status DC Ondansetron HCl (Zofran) 4 mg PRN Q4HRS PRN IV NAUSEA/VOMITING 1ST CHOICE Last administered on 01/23/19at 22:21; Start 01/23/19 at 21:45 Ondansetron HCl (Zofran) 4 mg PRN Q8HRS PRN IV NAUSEA/VOMITING; Start 01/23/19 at 17:45; Stop 01/23/19 at 21:42; Status DC Sodium Monofluorophosphate (Fleet Adult) 133 ml PRN DAILY PRN [place] CONSTIPATION 2ND CHOICE; Start 01/23/19 at 21:45 Sodium Chloride 500 ml @ 500 mls/hr 1X ONCE IV Last administered on at 15:00; Start 01/23/19 at 15:00; Stop 01/23/19 at 15:59; Status DC Sodium Chloride 1,000 ml @ 100 mls/hr Q10H IV Last administered on 01/23/19at 19:40; Start 01/23/19 at 17:38; Stop 01/23/19 at 21:42; Status DC Sodium Chloride 1,000 ml @ 100 mls/hr Q10H IV Last administered on 01/24/19at 06 :26; Start 01/23/19 at 22:00 Sodium Chloride (Normal Saline Flush 3ml) 3 ml QSHIFT PRN IV AFTER MEDS AND BLOOD DRAWS; Start 01/23/19 at 21:45 Zolpidem Tartrate (Ambien) 5 mg PRN QHS PRN PO INSOMNIA; Start 01/23/19 at 21: 45 Comment Review of Relevant I have reviewed the following items eagle (where applicable) has been applied. RAVIN MCLEOD MD Jan 24, 2019 13:12
--- NOTE | 2019-01-24 14:28 | NUR ---
Discharge teaching provided written and verbal to pt,understanding verbalized. Dismissed to home with all belongings accompanied by his . Transported to exit per w/c at 1420.
--- NOTE | 2019-01-24 16:06 | PDOC3 ---
Discharge Summary Visit Information Date of Admission: Jan 23, 2019 Date of Discharge: Jan 24, 2019 Admitting Diagnosis: dizzyness, vertigo Final Diagnosis Gastric tumor, GIST marked dizzyness, postional vertigo, benign htn, Hx tobaccoism, quit 2008 Problems Medical Problems: (1) Peripheral vertigo Status: Acute (2) Vertigo Status: Acute Brief Hospital Course Allergies Allergies Coded Allergies Type Severity Reaction Last Updated Verified Penicillins Allergy Intermediate 12/17/18 Yes simvastatin Allergy Intermediate 01/23/19 Yes Vital Signs Vital Signs Date Time Temp Pulse Resp B/P (MAP) Pulse Ox O2 Delivery O2 Flow Rate FiO2 01/24/19 08:00 Room Air 01/24/19 07:00 98.0 67 18 122/70 (87) 99 98.0 Lab Results Laboratory Tests Test 01/23/19 14:20 01/23/19 14:50 01/23/19 16:25 01/23/19 21:30 White Blood Count 11.0 x10^3/uL (4.0-11.0) Red Blood Count 4.55 x10^6/uL (4.30-5.70) Hemoglobin 13.5 g/dL (13.0-17.5) Hematocrit 41.4 % (39.0-53.0) Mean Corpuscular Volume 91 fL (79-100) Mean Corpuscular Hemoglobin 30 pg (25-35) Mean Corpuscular Hemoglobin Concent 33 g/dL (31-37) Red Cell Distribution Width 13.7 % (11.5-14.5) Platelet Count 401 x10^3/uL (140-400) Neutrophils (%) (Auto) 88 % (31-73) Lymphocytes (%) (Auto) 8 % (24-48) Monocytes (%) (Auto) 3 % (0-9) Eosinophils (%) (Auto) 1 % (0-3) Basophils (%) (Auto) 1 % (0-3) Neutrophils # (Auto) 9.7 x10^3uL (1.8-7.7) Lymphocytes # (Auto) 0.9 x10^3/uL (1.0-4.8) Monocytes # (Auto) 0.3 x10^3/uL (0.0-1.1) Eosinophils # (Auto) 0.1 x10^3/uL (0.0-0.7) Basophils # (Auto) 0.1 x10^3/uL (0.0-0.2) Segmented Neutrophils % 89 % (35-66) Lymphocytes % 5 % (24-48) Monocytes % 6 % (0-10) Platelet Estimate Increased (ADEQUATE) Polychromasia Slight Crenated Cell Present RBC Morphology Bizarre Forms Occ Sodium Level 144 mmol/L (136-145) Potassium Level 3.7 mmol/L (3.5-5.1) Chloride Level 108 mmol/L (98-107) Carbon Dioxide Level 26 mmol/L (21-32) Anion Gap 10 (6-14) Blood Urea Nitrogen 12 mg/dL (8-26) Creatinine 0.8 mg/dL (0.7-1.3) Estimated GFR (Cockcroft-Gault) 96.7 BUN/Creatinine Ratio 15 (6-20) Glucose Level 121 mg/dL (70-99) Calcium Level 8.8 mg/dL (8.5-10.1) Total Bilirubin 0.2 mg/dL (0.2-1.0) Aspartate Amino Transf (AST/SGOT) 16 U/L (15-37) Alanine Aminotransferase (ALT/SGPT) 26 U/L (16-63) Alkaline Phosphatase 96 U/L (46-116) Troponin I Quantitative < 0.017 ng/mL (0.000-0.055) Total Protein 6.4 g/dL (6.4-8.2) Albumin 3.4 g/dL (3.4-5.0) Albumin/Globulin Ratio 1.1 (1.0-1.7) Urine Color Yellow Urine Clarity Clear Urine pH 7.5 Urine Specific Compton 1.020 Urine Protein Negative mg/dL (NEG-TRACE) Urine Glucose (UA) 100 mg/dL (NEG) Urine Ketones (Stick) 15 mg/dL (NEG) Urine Blood Negative (NEG) Urine Nitrite Negative (NEG) Urine Bilirubin Negative (NEG) Urine Urobilinogen Dipstick 0.2 mg/dL (0.2 mg/dL) Urine Leukocyte Esterase Negative (NEG) Urine RBC 0 /HPF (0-2) Urine WBC Occ /HPF (0-4) Urine Squamous Epithelial Cells Occ /LPF Urine Bacteria 0 /HPF (0-FEW) Urine Mucus Slight /LPF Urine Opiates Screen Neg (NEG) Urine Methadone Screen Neg (NEG) Urine Barbiturates Neg (NEG) Urine Phencyclidine Screen Neg (NEG) Urine Amphetamine/Methamphetamine Neg (NEG) Urine Benzodiazepines Screen Neg (NEG) Urine Cocaine Screen Neg (NEG) Urine Cannabinoids Screen Neg (NEG) Urine Ethyl Alcohol Neg (NEG) Test 01/24/19 04:20 White Blood Count 7.8 x10^3/uL (4.0-11.0) Red Blood Count 4.05 x10^6/uL (4.30-5.70) Hemoglobin 12.1 g/dL (13.0-17.5) Hematocrit 37.1 % (39.0-53.0) Mean Corpuscular Volume 92 fL (79-100) Mean Corpuscular Hemoglobin 30 pg (25-35) Mean Corpuscular Hemoglobin Concent 33 g/dL (31-37) Red Cell Distribution Width 13.5 % (11.5-14.5) Platelet Count 353 x10^3/uL (140-400) Neutrophils (%) (Auto) 64 % (31-73) Lymphocytes (%) (Auto) 23 % (24-48) Monocytes (%) (Auto) 8 % (0-9) Eosinophils (%) (Auto) 4 % (0-3) Basophils (%) (Auto) 1 % (0-3) Neutrophils # (Auto) 5.0 x10^3uL (1.8-7.7) Lymphocytes # (Auto) 1.8 x10^3/uL (1.0-4.8) Monocytes # (Auto) 0.6 x10^3/uL (0.0-1.1) Eosinophils # (Auto) 0.3 x10^3/uL (0.0-0.7) Basophils # (Auto) 0.1 x10^3/uL (0.0-0.2) Sodium Level 145 mmol/L (136-145) Potassium Level 3.1 mmol/L (3.5-5.1) Chloride Level 110 mmol/L (98-107) Carbon Dioxide Level 25 mmol/L (21-32) Anion Gap 10 (6-14) Blood Urea Nitrogen 8 mg/dL (8-26) Creatinine 0.8 mg/dL (0.7-1.3) Estimated GFR (Cockcroft-Gault) 96.7 Glucose Level 119 mg/dL (70-99) Calcium Level 8.4 mg/dL (8.5-10.1) Triglycerides Level 113 mg/dL (0-150) Cholesterol Level 145 mg/dL (0-200) LDL Cholesterol, Calculated 80 mg/dL (0-100) VLDL Cholesterol, Calculated 23 mg/dL (0-40) Non-HDL Cholesterol Calculated 103 mg/dL (0-129) HDL Cholesterol 42 mg/dL (40-60) Cholesterol/HDL Ratio 3.5 Laboratory Tests Test 01/23/19 16:25 01/23/19 21:30 01/24/19 04:20 Urine Color Yellow Urine Clarity Clear Urine pH 7.5 Urine Specific Compton 1.020 Urine Protein Negative mg/dL (NEG-TRACE) Urine Glucose (UA) 100 mg/dL (NEG) Urine Ketones (Stick) 15 mg/dL (NEG) Urine Blood Negative (NEG) Urine Nitrite Negative (NEG) Urine Bilirubin Negative (NEG) Urine Urobilinogen Dipstick 0.2 mg/dL (0.2 mg/dL) Urine Leukocyte Esterase Negative (NEG) Urine RBC 0 /HPF (0-2) Urine WBC Occ /HPF (0-4) Urine Squamous Epithelial Cells Occ /LPF Urine Bacteria 0 /HPF (0-FEW) Urine Mucus Slight /LPF Urine Opiates Screen Neg (NEG) Urine Methadone Screen Neg (NEG) Urine Barbiturates Neg (NEG) Urine Phencyclidine Screen Neg (NEG) Urine Amphetamine/Methamphetamine Neg (NEG) Urine Benzodiazepines Screen Neg (NEG) Urine Cocaine Screen Neg (NEG) Urine Cannabinoids Screen Neg (NEG) Urine Ethyl Alcohol Neg (NEG) White Blood Count 7.8 x10^3/uL (4.0-11.0) Red Blood Count 4.05 x10^6/uL (4.30-5.70) Hemoglobin 12.1 g/dL (13.0-17.5) Hematocrit 37.1 % (39.0-53.0) Mean Corpuscular Volume 92 fL (79-100) Mean Corpuscular Hemoglobin 30 pg (25-35) Mean Corpuscular Hemoglobin Concent 33 g/dL (31-37) Red Cell Distribution Width 13.5 % (11.5-14.5) Platelet Count 353 x10^3/uL (140-400) Neutrophils (%) (Auto) 64 % (31-73) Lymphocytes (%) (Auto) 23 % (24-48) Monocytes (%) (Auto) 8 % (0-9) Eosinophils (%) (Auto) 4 % (0-3) Basophils (%) (Auto) 1 % (0-3) Neutrophils # (Auto) 5.0 x10^3uL (1.8-7.7) Lymphocytes # (Auto) 1.8 x10^3/uL (1.0-4.8) Monocytes # (Auto) 0.6 x10^3/uL (0.0-1.1) Eosinophils # (Auto) 0.3 x10^3/uL (0.0-0.7) Basophils # (Auto) 0.1 x10^3/uL (0.0-0.2) Sodium Level 145 mmol/L (136-145) Potassium Level 3.1 mmol/L (3.5-5.1) Chloride Level 110 mmol/L (98-107) Carbon Dioxide Level 25 mmol/L (21-32) Anion Gap 10 (6-14) Blood Urea Nitrogen 8 mg/dL (8-26) Creatinine 0.8 mg/dL (0.7-1.3) Estimated GFR (Cockcroft-Gault) 96.7 Glucose Level 119 mg/dL (70-99) Calcium Level 8.4 mg/dL (8.5-10.1) Triglycerides Level 113 mg/dL (0-150) Cholesterol Level 145 mg/dL (0-200) LDL Cholesterol, Calculated 80 mg/dL (0-100) VLDL Cholesterol, Calculated 23 mg/dL (0-40) Non-HDL Cholesterol Calculated 103 mg/dL (0-129) HDL Cholesterol 42 mg/dL (40-60) Cholesterol/HDL Ratio 3.5 Brief Hospital Course Mr. Poole is a 68 old male, admit with vertigo, very dizzy, could not stand on admit, meclizine helped, MRI ordered, can be done outpatient if needed. Neuro consult, Dr. Cruz, may follow Discharge Information Condition at Discharge: Improved Follow Up: Weeks Disposition/Orders: D/C to Home Scheduled Amlodipine Besylate (Amlodipine Besylate) 10 Mg Tablet, 10 MG PO DAILY, ( Reported) Entered as Reported by: CAMERON HOLLEY on 02/28/18 1024 Last Action: Reviewed on 01/23/191956 by ARIEL DRAPER Aspirin (Aspirin) 81 Mg Tab.chew, 1 TAB PO DAILY for HELP HEART, #30 Ref 3 ( Reported) Entered as Reported by: ADAM HOYOS on 12/16/181911 Last Action: Reviewed on 01/23/191956 by ARIEL DRAPER Benazepril Hcl (Benazepril Hcl) 40 Mg Tablet, 1 TAB PO DAILY for HYPERTENSION, # 30 Ref 5 (Reported) Entered as Reported by: ADAM HOYOS on 12/16/181912 Last Action: Reviewed on 01/23/191956 by ARIEL DRAPER Hydrochlorothiazide (Hydrochlorothiazide Tablet) 12.5 Mg Tablet, 1 TAB PO DAILY , #30 Ref 5 (Reported) Entered as Reported by: CAMERON HOLLEY on 02/28/18 1024 Last Action: Reviewed on 01/23/191956 by ARIEL DRAPER Ondansetron Hcl (Zofran) 8 Mg Tablet, 1 TAB PO Q8HRS for n/v, #30 Ref 1 ( Reported) Entered as Reported by: ARIEL DRAPER on 01/23/191957 Last Action: New Order on 01/23/191957 by ARIEL DRAPER Rosuvastatin Calcium (Crestor) 10 Mg Tablet, 1 TAB PO QHS for HIGH CHOLESTEROL, #30 Ref 5 (Reported) Entered as Reported by: CAMERON HOLLEY on 02/28/18 1024 Last Action: Reviewed on 01/23/191956 by ARIEL DRAPER Scheduled PRN Docusate Sodium (Colace) 100 Mg Capsule, 100 MG PO PRN BID PRN for CONSTIPATION 1ST CHOICE, #60 Prescribed by: JULIO WEBSTER on 01/24/19 1225 Meclizine Hcl (Meclizine Hcl) 12.5 Mg Tablet, 12.5 MG PO TID PRN for dizzyness, #30 Prescribed by: JULIO WEBSTER on 01/24/19 1225 Patient Instructions Patient Instructions discussed with pt and face to face JULIO WEBSTER MD Jan 24, 2019 16:05
== END 2019-01-24 14:20 | disposition home or self-care (01) ==
LOC: ER 12:24 → 5 NORTH 17:38
PROVIDERS: ADMIT Family Medicine; ATTEND Family Medicine
DX: R42 Dizziness and giddiness (principal); H81.399 Other peripheral vertigo, unspecified ear; E78.5 Hyperlipidemia, unspecified; I10 Essential (primary) hypertension; Z85.00 Personal history of malignant neoplasm of unspecified digestive organ; Z90.81 Acquired absence of spleen; C49.A2 Gastrointestinal stromal tumor of stomach; R26.9 Unspecified abnormalities of gait and mobility; Z82.49 Family history of ischemic heart disease and other diseases of the circulatory system; Z87.891 Personal history of nicotine dependence; R27.0 Ataxia, unspecified; R53.1 Weakness
CPT/HCPCS: 36415; 70450; 70496; 70498; 80048; 80053; 80061; 80307; 81001; 84484; 85007; 85025; 93005; 93306; 96361; 96372; 96374; 96376; 97161; 97165; 99284; G0378; G0379; J1650; J2405; J7030; J7040; J8597; Q9967

== ENCOUNTER 2019-06-09 11:00 | Observation (INO) | payer OTHER ==
[2019-06-09] VITALS (7 sets, daily range): BP systolic 98–123; BP diastolic 55–75
[~2019-06-09] VITALS: Ht 180.3 cm; Wt 101.6 kg
[~2019-06-09 11:00] MED LIST changes: +BACITRACIN 50,000 UNIT VIAL. IRR ONE; +BACITRACIN TOPICAL OINT 14GM TUBE. TP ONE; +DOCU-109 PO; +EPINEPHrine VIAL 30 MG/30 ML VIAL ONE; +HYDROmorphone 2 MG/ML VIAL IV PRN; +LIDOCAINE 1% PF 2 ML VIAL. ID PRN; +LIDOCAINE 1%/EPI 1:100,000 20 ML VIAL. ONE; +LIDOCAINE 4% KIT 4 ML SOLUTION. TP ONE; +MECL12.52 PO; +MECL25TA3 PO; +MORPHINE SULFATE 2 MG/ML VIAL. IV PRN; +ONDA8TAB9 PO; +ONDANSETRON PF 4 MG/2 ML VIAL. IV PRN; +PROCHLORPERAZINE 10 MG/2 ML VIAL. IV PRN; +REMIFENTANIL 1 MG VIAL. IV ONE; +fentaNYL PF VIAL 100 MCG/2 ML VIAL IV PRN
[2019-06-09] MEDS ORDERED: FLUT9.9S NS (11:13)
[2019-06-09] MEDS ORDERED: GLEEVEC400 MG PO (11:13)
[2019-06-09] MEDS: IV RINGERS,LACTATED 1000ML 1,000 ML IV SCH ×4 (11:20→22:31)
[2019-06-09] MEDS ORDERED: PROPOFOL 20 ML IV ONE ×2 (11:29→12:45)
[2019-06-09] MEDS ORDERED: LIDOCAINE 2% PF 5 ML VIAL. ONE (11:29)
[2019-06-09] MEDS ORDERED: ONDANSETRON PF 4 MG/2 ML VIAL. ONE (11:29)
[2019-06-09] MEDS ORDERED: DEXAMETHASONE SOD PHOS 4 MG/ML VIAL ONE (11:29)
[2019-06-09] MEDS ORDERED: fentaNYL PF VIAL 100 MCG/2 ML VIAL ONE (11:29)
[2019-06-09] MEDS ORDERED: FAMOTIDINE 20 MG/2 ML VIAL ONE (11:29)
[2019-06-09] MEDS ORDERED: MIDAZOLAM HCL/PF 2 MG/2 ML VIAL. ONE (11:29)
[2019-06-09] MEDS ORDERED: SUCCINYLCHOLINE 200 MG/10 ML VIAL. ONE (11:29)
[2019-06-09] MEDS ORDERED: LIDOCAINE 1%/EPI 1:100,000 20 ML VIAL. ONE (12:07)
[2019-06-09] MEDS ORDERED: diphenhydrAMINE HCL 25 MG CAPSULE PO PRN (12:45)
[2019-06-09] MEDS ORDERED: METOCLOPRAMIDE HCL 10 MG/2 ML VIAL. IV PRN (12:45)
[2019-06-09] MEDS ORDERED: CALCIUM CARBONATE 500 MG TAB.CHEW PO PRN (12:45)
[2019-06-09] MEDS ORDERED: 0.9 % SODIUM CHLORIDE 10 ML DISP.SYRIN. IV PRN (12:45)
[2019-06-09] MEDS ORDERED: MORPHINE SULFATE 2 MG/ML VIAL. IV PRN (12:45)
[2019-06-09] MEDS ORDERED: ONDANSETRON PF 4 MG/2 ML VIAL. IV PRN (12:45)
[2019-06-09] MEDS ORDERED: oxyCODONE/APAP 5/325 1 TAB TABLET PO PRN (12:45)
[2019-06-09] MEDS ORDERED: ESMOLOL 100 MG/10 ML VIAL. IVP ONE (13:06)
[2019-06-09] MEDS ORDERED: LABETALOL 20 MG/4 ML DISP.SYRIN. IVP PRN (13:15)
[2019-06-09] MEDS ORDERED: VASOPRESSIN 20 UNIT/ML VIAL. ONE (13:28)
[2019-06-09] MEDS ORDERED: 0.9 % SODIUM CHLORIDE 20 ML VIAL. IJ ONE (13:29)
[2019-06-09] MEDS ORDERED: PHENYLEPHRINE in 0.9% NACL PF 1 MG/10 ML SYRINGE. IV ONE (13:30)
[2019-06-09] MEDS ORDERED: NITROGLYCERIN OINT 1 GM PACKET. TP ONE (14:00)
[2019-06-09] MEDS ORDERED: PHENYLEPHRINE 10 MG/ML VIAL. ONE ×2 (14:57)
[2019-06-09] MEDS ORDERED: ceFAZolin 2GM PREMIX 2 GM/50 ML BAG IV ONE (15:00)
[2019-06-09] MEDS ORDERED: REMIFENTANIL 1 MG VIAL. IV ONE (15:29)
[2019-06-09] MEDS ORDERED: SEVOFLURANE > 120 MINUTES. IH ONE (15:36)
--- NOTE | 2019-06-09 16:27 | PDOC4 ---
IMMEDIATE POST OP NOTE Date: Jun 09, 2019 Pre-Op Diagnosis multinodular goiter with suspicious left thyroid nodule Post-Op Diagnosis same as above Procedure Performed total thyroidectomy Surgeon Dr. Xi Miranda Silo Painter Dr. Myriam Brasher Anesthesiologist Dr. Dumont Anesthesia Type: General Blood Loss 25mL Specimens Obtained left thyroid gland and isthmus right thyroid nodule Findings 1. Large 3cm highly indurated mass was present in the inferior left thyroid gland. Intraoperative touch prep pathology showed suspicious, atypical cells. 2. Multiple nodule present within right thyroid gland. Most inferior was also severely indurated 3. Bilateral recurrent laryngeal nerves were intact and stimulated at 1mAmp at the end of the case 4. Right inferior parathyroid gland and left superior and inferior parathyroid glands identified and healthy in appearance Complications none Medication Error- Patient was injected in subcutaneous fashion with 10ml of 1:1,000 epinephrine in stead of 1% lidocaine with 1:100,000 epinephrine. This caused elevated BP and HR temporarily but resolved spontaneously. Operative Note Dictation #: [id number] XI MIRANDA MD Jun 09, 2019 16:27
--- NOTE | 2019-06-09 17:16 | OP ---
DATE OF SURGERY: 06/09/2019 PREOPERATIVE DIAGNOSES: Multinodular goiter with suspicious left thyroid nodule. POSTOPERATIVE DIAGNOSES: Multinodular goiter with suspicious left thyroid nodule. PROCEDURE PERFORMED: Total thyroidectomy. SURGEON: Xi Miranda MD. QA AUTOMATION ARCHITECT: Myriam Brasher MD. ANESTHESIA: General endotracheal anesthesia. INDICATIONS FOR SURGERY: The patient is a 68-year-old male with a history of stromal intestinal malignancy, status post surgery in 01/2019 and postoperative PET/CT staging treatment, the patient was found to have bilateral thyroid nodules, the right, underwent FNA, which was nondiagnostic and the left side fine needle aspiration, which was found to have atypical cells, which were highly concerning for malignancy and the genetic testing came back 95% risk of malignancy. The decision was made for the patient to undergo the above procedure after the risks, benefits, and alternatives of surgery were thoroughly discussed with the patient and his and informed consent was obtained. SPECIMENS: The left thyroid gland and isthmus were sent for touch prep intraoperative pathology, which showed highly suspicious cells, could not make the full diagnosis of malignancy, but this will be sent for permanent pathology for further diagnosis and the right thyroid nodule was also sent. INTRAOPERATIVE FINDINGS: 1. A large 3 cm highly indurated mass was present in the inferior left thyroid gland. Intraoperative touch prep pathology showed suspicious atypical cells. 2. Multiple nodules present within the right thyroid gland, most inferior was also severely indurated. 3. Bilateral recurrent laryngeal nerves were intact and stimulated at 1 milliamp at the end of the case. Right inferior parathyroid gland and left superior and inferior parathyroid glands identified and healthy in appearance. COMPLICATIONS: There was a medication error intraoperatively. The patient was injected in subcutaneous fashion with 10 mL of 1:1,000 epinephrine at surgical site in error. This caused elevated blood pressure and heart rate temporarily, but resolved spontaneously and treated appropriately by Anesthesia. The patient will be monitored postoperatively. The intended medication to be injected was 1% lidocaine with 1:100,000 epinephrine and the wrong medication was handed to the surgeon at the time of injection. DESCRIPTION OF PROCEDURE: The patient was brought back to the room per Anesthesia and intubated with a nerve integrity monitor and endotracheal tube in the standard fashion. A shoulder roll was then placed on the patient's shoulders and neck landmarks were marked with a marker. I planned a 5 cm incision in the central neck approximately 2 fingerbreadths above the sternal notch. At this point, I was going to inject the subcutaneous tissue with 1% lidocaine with 1:100,000 epinephrine. However, in error, the syringe for injection was filled with 1:1,000 epinephrine. The injection was given and, shortly after injection in the subcutaneous plane around the incision, the patient was found to have hypertension and tachycardia with some arrhythmias. The patient was monitored for several minutes by Anesthesia providers and with fluid management and observation, the blood pressure and heart rate decreased and the patient was closely monitored throughout the case and postoperatively. This was well documented in the anesthesia record. After the patient was deemed to be stable, the patient was prepped and draped in standard fashion. Dr. Brasher was present throughout the case and acted as a registered nurse first assistant to help confirm surgical landmarks and to assist with the dissection. A 15 blade was used to cut through the skin and subcutaneous tissue. A Bovie electrocautery was used to cut through the platysmal layer. Subplatysmal flaps were elevated superiorly to the thyroid notch, inferiorly to the sternal notch and laterally to the sternocleidomastoid muscles bilaterally. An Regino retractor was then placed to retract the skin edges throughout the case. The strap musculature was then identified and at the midline. I dissected the strap musculature off the anterior surface of the left thyroid gland. The patient's left thyroid gland was significantly inferiorly within the neck and I carefully dissected around the superior pole using bipolar cautery and LigaSure. I then retracted the gland medially. I dissected through the middle thyroid vein and further dissected the gland medially. There was a large indurated nodule within the inferior aspect of the thyroid gland. Using bipolar electrocautery, I carefully dissect along the deep surface of the thyroid gland, identified the tissue, which seemed to be superior parathyroid tissue. This was carefully dissected away from the thyroid gland. I again identified the recurrent laryngeal nerve. This was again identified and traced until it entered into the larynx at the cricothyroid notch. I carefully dissected the thyroid gland away from the nerve using bipolar electrocautery. I further dissected through Mtz's ligament using bipolar electrocautery as well as a 15 blade and I also used bipolar cautery and LigaSure to dissect around the inferior thyroid pole including this large thyroid nodule. Once I was safely away from the recurrent laryngeal nerve, I dissected through the paratracheal tissue using Bovie electrocautery. I then used the LigaSure to dissect through the thyroid isthmus. The left thyroid gland and isthmus were inspected on the back table and there was no evidence of attached parathyroid tissue. This was sent for pathology for intraoperative touch prep pathology. This came back as highly calcified nodule with suspicious atypical cells present within it. Therefore, it was decided that due to the high suspicion of malignancy that we would continue with a total thyroidectomy. The strap musculature was then dissected off the anterior surface of the right thyroid gland. I further dissected around the lateral aspect of the thyroid gland and dissected through the middle thyroid vein. We also dissected the superior vascular bundle superiorly using LigaSure cautery. We again dissected the gland medially. In doing so, we then identified what was appeared to be the recurrent laryngeal nerve and carefully dissected the thyroid tissue off of the recurrent laryngeal nerve, although this recurrent laryngeal was deep in underlying fascia and we did not trace it closely as on the other side. There was also parathyroid tissue adherent to the thyroid capsule inferiorly. This was carefully dissected away using bipolar electrocautery. We continued to dissect around the thyroid capsule using bipolar electrocautery and dissecting through Mtz's ligament. Once we were safely away from the recurrent laryngeal nerve, we used Bovie electrocautery to dissect the remaining thyroid gland off the paratracheal tissue and off of superior tissue within the neck. Once the thyroid gland specimen was completely removed, we labeled as the right thyroid lobe. We inspected the specimen. There was no evidence of attached parathyroid tissue. This was sent for permanent pathology. Again, there were multiple nodules present on this side, but one was severely indurated inferiorly. The surgical bed was then thoroughly irrigated and adequate hemostasis was confirmed. The recurrent laryngeal nerves were again identified bilaterally and stimulated at 1 milliamp on the left and 2 milliamps on the right at the end of the case. Jonh powder was placed within the surgical bed. A 10-[place] fully fluted drain was also placed within the surgical bed. This was brought out through the midline of the strap musculature and the strap musculature was closed with 3-0 Vicryl suture. The Regino retractor was then removed. I ensured adequate hemostasis in the subplatysmal layer. The deep dermis and platysmal layers were closed with buried interrupted sutures of 4-0 Vicryl and a horizontal mattress suture of 5-0 Prolene was used to close the skin. Bacitracin ointment was placed along the incision. The patient was turned back over to anesthesia and extubated without complication. All sponge, needle and instrument counts were correct at the end of the case. DISPOSITION: Stable on transfer to recovery room XI MIRANDA MD DR: SCOOBY/dominga JOB#: [id number] / [id number] JANETTE
--- NOTE | 2019-06-09 20:10 | NUR ---
Patient admitted to room 426 per ambulance rdobson. Patient was transferred from [facility]. Patient c/o of abdominal pain x4 days. Ct Scan done at [facility] showed possible appendicitis. Dr. Pérez will see patient on 06/10 to determine if patient needs to have surgery. Patient is anxious and scared. at bedside. Patient is breast feeding her 6 month old baby. 3rd floor called to borrow breast pump. Will continue to monitor. Addendum: 06/10/19 at 1833 by DILCIA AVELAR RN charted on wrong patient
[2019-06-09] MEDS: DOCUSATE SODIUM 100 MG CAPSULE. PO SCH (20:51)
[2019-06-09] MEDS: oxyCODONE/APAP 5/325 1 TAB TABLET PO PRN (23:54)
[2019-06-10 03:00] VITALS: BP 116/69
[2019-06-10] MEDS: oxyCODONE/APAP 5/325 1 TAB TABLET PO PRN ×3 (04:46→15:35)
[2019-06-10] MEDS ORDERED: LEVOTHYROXINE 175 MCG TABLET PO SCH (06:00)
[2019-06-10 07:00] VITALS: BP 123/67
[2019-06-10] MEDS: DOCUSATE SODIUM 100 MG CAPSULE. PO SCH (08:31)
[2019-06-10] MEDS: IV RINGERS,LACTATED 1000ML 1,000 ML IV SCH (08:31)
[2019-06-10 08:47] LABS: BASO % 0 % (0-3); EOS % 0 % (0-3); HEMOGLOBIN 11.2 g/dL (13.0-17.5); LYMPH # 0.9 x10^3/uL (1.0-4.8); LYMPH % 7 % (24-48); MEAN CORPUSCULAR HEMOGLOBIN 33 pg (25-35); MEAN CORPUSCULAR HGB CONC 34 g/dL (31-37); MEAN CORPUSCULAR VOLUME 97 fL (79-100); MONO # 0.9 x10^3/uL (0.0-1.1); MONO % 8 % (0-9); NEUT # 10.2 x10^3/uL (1.8-7.7); NEUT % 85 % (31-73); PLATELET COUNT 249 x10^3/uL (140-400); RED BLOOD COUNT 3.41 x10^6/uL (4.30-5.70); RED CELL DISTRIBUTION WIDTH 16.7 % (11.5-14.5)
[2019-06-10 08:54] LABS: CALCIUM 7.8 mg/dL (8.5-10.1); CREATININE 0.8 mg/dL (0.7-1.3); GFR 96.7; POTASSIUM 4.1 mmol/L (3.5-5.1)
[2019-06-10] MEDS ORDERED: amLODIPine BESYLATE 10 MG TABLET PO SCH (09:00)
[2019-06-10] MEDS ORDERED: hydroCHLOROthiazide 12.5 MG CAPSULE PO SCH (09:00)
[2019-06-10] MEDS ORDERED: LISINOPRIL 20 MG TABLET PO SCH (09:00)
[2019-06-10 10:26] LABS: % BANDS 3 % (0-9); % LYMPHS 5 % (24-48); % MONOS 5 % (0-10); % SEGS 87 % (35-66)
[2019-06-10 10:27] LABS: PLT ESTIMATE ADEQUATE (ADEQUATE)
[2019-06-10 11:00] VITALS: BP 127/65
--- NOTE | 2019-06-10 11:11 | NUR ---
SS following for discharge planning. SS reviewed pt chart. Pt is from home with spouse and is currently on room air. No discharge needs noted at this time. SS will continue to follow for discharge planning.
[2019-06-10] MEDS: CALCIUM CARBONATE 500 MG TABLET PO SCH ×2 (13:44→17:38)
--- NOTE | 2019-06-10 14:30 | NUR ---
Dr. Miranda called re: pt's admission status and when she may round on pt. Dr. Serna stated she would be in to see pt after her clinic hours.
[2019-06-10 15:00] VITALS: BP 136/65
[2019-06-10] MEDS ORDERED: LEVO175T2 PO (18:07)
[2019-06-10] MEDS ORDERED: CALC0.25 PO (18:07)
[2019-06-10] MEDS ORDERED: OXYC1TAB15 PO (18:07)
[2019-06-10] MEDS ORDERED: CALC200T23 PO (18:07)
--- NOTE | 2019-06-10 18:11 | PDOC ---
PROGRESS NOTES Subjective Subjective Patient is doing well postoperatively. No issues or concerns. He does have hoarse voice and sore throat. Pain is tolerated. No tingling in hands or around mouth. Objective Objective Vital Signs Date Time Temp Pulse Resp B/P (MAP) Pulse Ox O2 Delivery O2 Flow Rate FiO2 06/10/19 15:35 Room Air 06/10/19 15:00 98.1 72 16 136/65 (88) 92 98.1 06/10/19 00:54 2.0 Intake and Output 06/10/19 07:00 Intake Total 1810 ml Output Total 1980 ml Balance -170 ml Intake Oral 360 ml IV Total 750 ml Other 700 ml Output Urine Total 1875 ml Drainage Total 80 ml Estimated Blood Loss 25 ml # Voids 1 Physical Exam Heart: Regular rate Extremities: No clubbing, No cyanosis, No edema, Normal pulses General: Alert, Oriented X3, Cooperative HEENT: Other COMMENT Neck: incision c/d/i, serous fluid in drain, 30mL output over past 8 hours. Diagnosis DIAGNOSIS 68 year old male POD #1 s/p total thyroidectomy. Overall doing well. Patient does have lowering calcium-- started oral replacement. Drain removed. Plan Plan of Care 1. Drain removed 2. Discharged to home today with oral calcium/vitamin D supplements. 3. Reassured patient that voice should improve over time. Comment Review of Relevant I have reviewed the following items eagle (where applicable) has been applied. Labs Laboratory Tests Test 06/09/19 16:25 06/10/19 04:30 Ionized Calcium 1.09 mmol/L (1.13-1.32) 1.06 mmol/L (1.13-1.32) White Blood Count 12.0 x10^3/uL (4.0-11.0) Red Blood Count 3.41 x10^6/uL (4.30-5.70) Hemoglobin 11.2 g/dL (13.0-17.5) Hematocrit 33.0 % (39.0-53.0) Mean Corpuscular Volume 97 fL (79-100) Mean Corpuscular Hemoglobin 33 pg (25-35) Mean Corpuscular Hemoglobin Concent 34 g/dL (31-37) Red Cell Distribution Width 16.7 % (11.5-14.5) Platelet Count 249 x10^3/uL (140-400) Neutrophils (%) (Auto) 85 % (31-73) Lymphocytes (%) (Auto) 7 % (24-48) Monocytes (%) (Auto) 8 % (0-9) Eosinophils (%) (Auto) 0 % (0-3) Basophils (%) (Auto) 0 % (0-3) Neutrophils # (Auto) 10.2 x10^3/uL (1.8-7.7) Lymphocytes # (Auto) 0.9 x10^3/uL (1.0-4.8) Monocytes # (Auto) 0.9 x10^3/uL (0.0-1.1) Eosinophils # (Auto) 0.0 x10^3/uL (0.0-0.7) Basophils # (Auto) 0.0 x10^3/uL (0.0-0.2) Segmented Neutrophils % 87 % (35-66) Band Neutrophils % 3 % (0-9) Lymphocytes % 5 % (24-48) Monocytes % 5 % (0-10) Platelet Estimate Adequate (ADEQUATE) Sodium Level 143 mmol/L (136-145) Potassium Level 4.1 mmol/L (3.5-5.1) Chloride Level 106 mmol/L (98-107) Carbon Dioxide Level 26 mmol/L (21-32) Anion Gap 11 (6-14) Blood Urea Nitrogen 10 mg/dL (8-26) Creatinine 0.8 mg/dL (0.7-1.3) Estimated GFR (Cockcroft-Gault) 96.7 Glucose Level 133 mg/dL (70-99) Calcium Level 7.8 mg/dL (8.5-10.1) Laboratory Tests Test 06/10/19 04:30 White Blood Count 12.0 x10^3/uL (4.0-11.0) Red Blood Count 3.41 x10^6/uL (4.30-5.70) Hemoglobin 11.2 g/dL (13.0-17.5) Hematocrit 33.0 % (39.0-53.0) Mean Corpuscular Volume 97 fL (79-100) Mean Corpuscular Hemoglobin 33 pg (25-35) Mean Corpuscular Hemoglobin Concent 34 g/dL (31-37) Red Cell Distribution Width 16.7 % (11.5-14.5) Platelet Count 249 x10^3/uL (140-400) Neutrophils (%) (Auto) 85 % (31-73) Lymphocytes (%) (Auto) 7 % (24-48) Monocytes (%) (Auto) 8 % (0-9) Eosinophils (%) (Auto) 0 % (0-3) Basophils (%) (Auto) 0 % (0-3) Neutrophils # (Auto) 10.2 x10^3/uL (1.8-7.7) Lymphocytes # (Auto) 0.9 x10^3/uL (1.0-4.8) Monocytes # (Auto) 0.9 x10^3/uL (0.0-1.1) Eosinophils # (Auto) 0.0 x10^3/uL (0.0-0.7) Basophils # (Auto) 0.0 x10^3/uL (0.0-0.2) Segmented Neutrophils % 87 % (35-66) Band Neutrophils % 3 % (0-9) Lymphocytes % 5 % (24-48) Monocytes % 5 % (0-10) Platelet Estimate Adequate (ADEQUATE) Sodium Level 143 mmol/L (136-145) Potassium Level 4.1 mmol/L (3.5-5.1) Chloride Level 106 mmol/L (98-107) Carbon Dioxide Level 26 mmol/L (21-32) Anion Gap 11 (6-14) Blood Urea Nitrogen 10 mg/dL (8-26) Creatinine 0.8 mg/dL (0.7-1.3) Estimated GFR (Cockcroft-Gault) 96.7 Glucose Level 133 mg/dL (70-99) Calcium Level 7.8 mg/dL (8.5-10.1) Ionized Calcium 1.06 mmol/L (1.13-1.32) Medications Current Medications Ondansetron HCl (Zofran) 4 mg PRN Q6HRS PRN IV NAUSEA/VOMITING Last administered on 06/09/19at 18:01; Start 06/09/19 at 07:00; Stop 06/10/19 at 06:59; Status DC Fentanyl Citrate (Fentanyl 2ml Vial) 25 mcg PRN Q5MIN PRN IV MILD PAIN 1-3; Start 06/09/19 at 07:00; Stop 06/10/19 at 06:59; Status DC Fentanyl Citrate (Fentanyl 2ml Vial) 50 mcg PRN Q5MIN PRN IV MODERATE TO SEVERE PAIN; Start 06/09/19 at 07:00; Stop 06/10/19 at 06:59; Status DC Morphine Sulfate (Morphine Sulfate) 1 mg PRN Q10MIN PRN IV SEVERE PAIN 7-10; Start 06/09/19 at 07:00; Stop 06/10/19 at 06:59; Status DC Ringer's Solution 1,000 ml @ 30 mls/hr Q24H IV Last administered on 06/09/19at 16:18; Start 06/09/19 at 07:00; Stop 06/09/19 at 18:59; Status DC Lidocaine HCl (Xylocaine-Mpf 1% 2ml Vial) 2 ml PRN 1X PRN ID PRIOR TO IV START; Start 06/09/19 at 07:00; Stop 06/10/19 at 06:59; Status DC Hydromorphone HCl (Dilaudid) 0.5 mg PRN Q10MIN PRN IV SEV PAIN, Second choice; Start 06/09/19 at 07:00; Stop 06/10/19 at 06:59; Status DC Prochlorperazine Edisylate (Compazine) 5 mg PACU PRN PRN IV NAUSEA, MRX1; Start 06/09/19 at 07:00; Stop 06/10/19 at 06:59; Status DC Remifentanil HCl (Ultiva) 1 mg STK-MED ONCE IV ; Start 06/09/19 at 10:30; Stop 06/09/19 at 10:31; Status DC Lidocaine HCl (Lta Kit) 4 ml STK-MED ONCE TP ; Start 06/09/19 at 10:32; Stop 06/09/19 at 10:33; Status DC Propofol 20 ml @ As Directed STK-MED ONCE IV ; Start 06/09/19 at 11:29; Stop 06/09/19 at 11:30; Status DC Dexamethasone Sodium Phosphate (Decadron) 4 mg STK-MED ONCE .ROUTE ; Start 06/09/19 at 11:29; Stop 06/09/19 at 11:30; Status DC Famotidine (Pepcid Vial) 20 mg STK-MED ONCE .ROUTE ; Start 06/09/19 at 11:29; Stop 06/09/19 at 11:30; Status DC Lidocaine HCl (Lidocaine Pf 2% Vial) 5 ml STK-MED ONCE .ROUTE ; Start 06/09/19 at 11:29; Stop 06/09/19 at 11:30; Status DC Ondansetron HCl (Zofran) 4 mg STK-MED ONCE .ROUTE ; Start 06/09/19 at 11:29; Stop 06/09/19 at 11:30; Status DC Succinylcholine Chloride (Anectine) 200 mg STK-MED ONCE .ROUTE ; Start 06/09/19 at 11:29; Stop 06/09/19 at 11:30; Status DC Fentanyl Citrate (Fentanyl 2ml Vial) 100 mcg STK-MED ONCE .ROUTE ; Start at 11:29; Stop 06/09/19 at 11:30; Status DC Midazolam HCl (Versed) 2 mg STK-MED ONCE .ROUTE ; Start 06/09/19 at 11:29; Stop 06/09/19 at 11:30; Status DC Epinephrine HCl (Adrenalin) 30 mg STK-MED ONCE .ROUTE Last administered on 06/09/19at 12:45; Start 06/09/19 at 10:57; Stop 06/09/19 at 11:57; Status DC Lidocaine/ Epinephrine (LIDOCAINE 1%-EPI 1:100,000 Multi-Dose) 20 ml STK-MED ONCE .ROUTE ; Start 06/09/19 at 10:58; Stop 06/09/19 at 11:58; Status DC Bacitracin (Bacitracin) 50,000 unit STK-MED ONCE IRR ; Start 06/09/19 at 10:58; Stop 06/09/19 at 11:58; Status DC Bacitracin 14 tari STK-MED ONCE TP Last administered on 06/09/19at 14:12; Start 06/09/19 at 11:00; Stop 06/09/19 at 12:01; Status DC Cefazolin Sodium/ Dextrose 50 ml @ 100 mls/hr 1X ONCE IV Last administered on 06/09/19at 12:27; Start 06/09/19 at 12:15; Stop 06/09/19 at 12:44; Status DC Amlodipine Besylate (Norvasc) 10 mg DAILY PO Last administered on 06/10/19at 08:32; Start 06/10/19 at 09:00 Lisinopril (Prinivil) 40 mg DAILY PO Last administered on 06/10/19at 08:33; Start 06/10/19 at 09:00 Hydrochlorothiazide (Microzide) 12.5 mg DAILY PO Last administered on 06/10/19at 08:32; Start 06/10/19 at 09:00 Calcium Carbonate/ Glycine (Tums) 500 mg PRN Q3HRS PRN PO HEARTBURN / GAS; Start 06/09/19 at 12:45 Diphenhydramine HCl (Benadryl) 25 mg PRN Q6HRS PRN PO ITCHING Last administered on 06/09/19at 23:53; Start 06/09/19 at 12:45 Cefazolin Sodium/ Dextrose 50 ml @ 100 mls/hr Q8H IV Last administered on 06/10/19at 13:45; Start 06/09/19 at 20:30 Sodium Chloride (Normal Saline Flush) 3 ml QSHIFT PRN IV AFTER MEDS AND BLOOD DRAWS; Start 06/09/19 at 12:45 Ringer's Solution 1,000 ml @ 100 mls/hr Q10H IV ; Start 06/09/19 at 12:31 Oxycodone/ Acetaminophen (Percocet 5/325) 1 tab PRN Q4HRS PRN PO MILD PAIN, 1ST CHOICE; Start 06/09/19 at 12:45 Oxycodone/ Acetaminophen (Percocet 5/325) 2 tab PRN Q4HRS PRN PO MODERATE PAIN, SEVERE PAIN Last administered on 06/10/19at 15:35; Start 06/09/19 at 12:45 Morphine Sulfate (Morphine Sulfate) 2 mg PRN Q1HR PRN IV PAIN; Start 06/09/19 at 12:45 Docusate Sodium (Colace) 100 mg BID PO Last administered on 06/10/19at 08:31; Start 06/09/19 at 21:00 Ondansetron HCl (Zofran) 4 mg PRN Q6HRS PRN IV NAUESA, 1ST CHOICE; Start 06/09/19 at 12:45 Metoclopramide HCl (Reglan Vial) 5 mg PRN Q6HRS PRN IV Nausea/Vomiting, 2nd Choice; Start 06/09/19 at 12:45 Propofol 20 ml @ As Directed STK-MED ONCE IV ; Start 06/09/19 at 12:45; Stop 06/09/19 at 12:46; Status DC Esmolol HCl (Brevibloc) 100 mg STK-MED ONCE IVP ; Start 06/09/19 at 13:06; Stop 06/09/19 at 13:07; Status DC Lidocaine/ Epinephrine (LIDOCAINE 1%-EPI 1:100,000 Multi-Dose) 20 ml STK-MED ONCE .ROUTE ; Start 06/09/19 at 12:07; Stop 06/09/19 at 13:07; Status DC Labetalol HCl (Normodyne Iv Push) 20 mg PRN Q2HR PRN IVP HYPERTENSION; Start 06/09/19 at 13:15; Stop 06/10/19 at 13:14; Status DC Vasopressin (Vasostrict) 20 unit STK-MED ONCE .ROUTE ; Start 06/09/19 at 13:28; Stop 06/09/19 at 13:29; Status DC Sodium Chloride (SODIUM CHLORIDE 20ml) 20 ml STK-MED ONCE IJ ; Start 06/09/19 at 13:29; Stop 06/09/19 at 13:30; Status DC Phenylephrine HCl (PHENYLEPHRINE in 0.9% NACL PF) 1 mg STK-MED ONCE IV ; Start 06/09/19 at 13:30; Stop 06/09/19 at 13:31; Status DC Nitroglycerin (Nitro-Bid Oint) 1 inch ONCE ONCE TP Last administered on 06/09/19at 16:12; Start 06/09/19 at 14:00; Stop 06/09/19 at 14:01; Status DC Phenylephrine HCl (John-Synephrine Inj) 10 mg STK-MED ONCE .ROUTE ; Start 06/09/19 at 14:57; Stop 06/09/19 at 14:58; Status DC Phenylephrine HCl (John-Synephrine Inj) 10 mg STK-MED ONCE .ROUTE ; Start 06/09/19 at 14:57; Stop 06/09/19 at 14:58; Status DC Remifentanil HCl (Ultiva) 1 mg STK-MED ONCE IV ; Start 06/09/19 at 15:29; Stop 06/09/19 at 15:30; Status DC Sevoflurane (Ultane) 90 ml STK-MED ONCE IH ; Start 06/09/19 at 15:36; Stop 06/09/19 at 15:37; Status DC Levothyroxine Sodium (Synthroid) 175 mcg DAILY06 PO Last administered on 06/10/19at 06:15; Start 06/10/19 at 06:00 Cefazolin Sodium/ Dextrose (Ancef 2gm Premix) 2 gm STK-MED ONCE IV ; Start 06/09/19 at 15:00; Stop 06/10/19 at 12:31; Status DC Calcitriol (Rocaltrol) 0.5 mcg BID PO ; Start 06/10/19 at 21:00 Calcium Carbonate/ Glycine (Oscal) 500 mg TIDAFTMEAL PO Last administered on 06/10/19at 17:38; Start 06/10/19 at 13:00 Active Scripts Active Percocet 5-325 Mg Tablet (Oxycodone/Acetaminophen) 1 Each Tablet 1 Tab PO PRN Q4HRS PRN 7 Days Synthroid (Levothyroxine Sodium) 175 Mcg Tablet 175 Mcg PO DAILY06 60 Days Calcitriol 0.25 Mcg Capsule 0.5 Mcg PO BID Calcium Carbonate 200 Mg Tab.chew 1,000 Mg PO TID Reported Gleevec (Imatinib Mesylate) 400 Mg Tablet 400 Mg PO DAILYAC Flonase Allergy Relief (Fluticasone Propionate) 9.9 Ml Jerome.susp 2 Sprays NS DAILY Benazepril Hcl 40 Mg Tablet 1 Tab PO DAILY Aspirin 81 Mg Tab.chew 1 Tab PO DAILY Hydrochlorothiazide Tablet (Hydrochlorothiazide) 12.5 Mg Tablet 1 Tab PO DAILY Amlodipine Besylate 10 Mg Tablet 10 Mg PO DAILY Crestor (Rosuvastatin Calcium) 10 Mg Tablet 1 Tab PO QHS Vitals/I & O Vital Sign - Last 24 Hours 06/09/19 06/09/19 06/09/19 06/09/19 18:15 18:30 18:45 19:00 Temp 98.8 98.8 Pulse 91 88 93 91 Resp 18 B/P (MAP) 98/55 (69) 102/58 (73) 106/60 (75) 114/75 (88) Pulse Ox 95 96 98 94 O2 Delivery Room Air 06/09/19 06/09/19 06/09/19 06/10/19 19:35 23:00 23:54 00:54 Temp 98.8 98.8 Pulse 93 Resp 18 20 B/P (MAP) 123/72 (89) Pulse Ox 92 O2 Delivery Nasal Cannula Room Air Room Air O2 Flow Rate 2.0 2.0 06/10/19 06/10/19 06/10/19 06/10/19 03:00 04:46 05:46 07:00 Temp 98.3 98.3 Pulse 77 Resp 18 20 20 B/P (MAP) 116/69 (85) Pulse Ox 91 O2 Delivery Room Air Room Air Room Air 06/10/19 06/10/19 06/10/19 06/10/19 07:00 08:32 08:33 08:36 Temp 98.1 98.1 Pulse 70 70 70 Resp 16 B/P (MAP) 123/67 (85) 123/67 123/67 Pulse Ox 93 O2 Delivery Room Air Room Air 06/10/19 06/10/19 06/10/19 11:00 15:00 15:35 Temp 97.8 98.1 97.8 98.1 Pulse 85 72 Resp 16 16 B/P (MAP) 127/65 (85) 136/65 (88) Pulse Ox 94 92 O2 Delivery Room Air Room Air Room Air Intake and Output 06/09/19 06/09/19 06/10/19 15:00 23:00 07:00 Intake Total 170 ml 1640 ml Output Total 400 ml 1580 ml Balance -230 ml 60 ml COLLETTE NELSON MD Jun 10, 2019 18:11
--- NOTE | 2019-06-10 18:36 | NUR ---
Pt. discharged to home with Rx, verbalized understanding of discharge instructions. Neck drsg CDI.
[2019-06-10] MEDS ORDERED: CALCITRIOL 0.25 MCG CAPSULE. PO SCH (21:00)
[2019-06-12 12:13] LABS: CALCIUM PTH 8.4 mg/dL (8.6-10.2); CREATININE PTH 0.87 mg/dL (0.76-1.27); PTH INTACT 22 pg/mL (15-65)
--- NOTE | 2019-06-13 18:06 | PATHOLOGY ---
[facility] Accession Number: [id number] . 01 Material submitted: . PART A: thyroid gland - LEFT THYROID - FS. Modifiers: left PART B: thyroid gland - RIGHT THYROID. Modifiers: right . 01 Clinical history: . Left thyroid nodule . Frozen section diagnosis: . Intraoperative Consultation with Frozen Section: (Rolly Bartlett M.D.) . FSA1. Left thyroid lobe, excision: - ENCAPSULATED FOLLICULAR NEOPLASM WITH EXTENSIVE CALCIFICATION, SUSPICIOUS FOR MALIGNANCY. . The results are reported to Dr. Xi Miranda in the operating room. . FROZEN SECTION GROSS DESCRIPTION: The specimen is received fresh for intraoperative consultation and is designated "left thyroid stitch superior to mass". This consists of a lobe of reddish-purple thyroid tissue which measures 5.7 x 3.4 x 2.4 cm in greatest dimension. There is a bulging mass within the inferior portion of the lobe. There is a stitch attached to the superior pole. The capsular surface appears intact. There is focal brown, roughening of the posterior capsular surface. The margins are inked. The specimen is sectioned. Sectioning reveals an encapsulated firm gritty multinodular mass measuring up to 2.9 cm in greatest dimension. The nodular areas within the mass are torrez to pink and soft. The capsule and bands of tissue the nodules show extensive areas of calcification. The remainder of the thyroid lobe has a reddish-purple meaty appearance with no additional nodules identified. A portion of the nodule from the inferior pole is submitted for frozen section as FSA1. The tissue remaining from frozen section is submitted for permanent sections as A1. (JPM/db; 06/09/2019) . Frozen section performed at [facility], [address] [place] [address], [place] [address]. /LBQ . 02 Diagnosis: A. Thyroid lobe, left thyroidectomy: - Papillary carcinoma, classical type, forming an encapsulated multinodular tumor mass of the inferior pole measuring 2.9 cm in greatest dimension and showing extensive foci of sclerosis and calcification, with capsular invasion and focal extrathyroidal tumor invasion. See synoptic report. - Tumor is focally less than 1 mm from the inked margin of excision. - Small adenomatous nodule. - No parathyroid glands identified. . B. Thyroid lobe, right thyroidectomy: - Papillary carcinoma, classical type, forming three small foci, the largest measuring 0.4 cm in greatest dimension. - Inked margin of excision negative for tumor. - Adenomatous nodules, multiple, showing focal Hurthle cell features, the largest of which measures 1.6 cm in greatest dimension and shows extensive sclerosis and calcification. - Parathyroid gland identified. . (JPM:karmen; 06/12/2019) . Surgical Pathology Cancer Case Summary Protocol posting date: April 2017 THYROID GLAND: Procedure ___ Total thyroidectomy Tumor Focality ___ Multifocal Tumor Site ___ Left lobe ___ Right lobe Tumor Size Greatest dimension: 2.9 cm (inferior pole left thyroid lobe) + Three small foci within right thyroid lobe measuring up to 0.4 cm in greatest dimension Histologic Type Papillary Carcinomas ___ Papillary carcinoma, classic (usual, conventional) Margins ___ Uninvolved by carcinoma + Distance of invasive carcinoma from closest margin: < 1 mm Angioinvasion ___ Not identified Lymphatic Invasion ___ Not identified + Perineural Invasion +___ Not identified Extrathyroidal Extension ___ Not identified Regional Lymph Nodes ___ No lymph nodes submitted or found . Pathologic Stage Classification (pTNM, AJCC 8th Edition) Primary Tumor (pT) ___ pT2: Tumor >2 cm, but less than or equal to 4 cm in greatest dimension, limited to thyroid Regional Lymph Nodes (pN): ___ pNX: Regional lymph nodes cannot be assessed + Additional Pathologic Findings + ___ Adenomatoid nodule(s) + ___ Right parathyroid gland present + Clinical History + ___ Other (specify): Unknown (JPM:[email or web address] 06/13/2019) MBR/06/13/2019 . 02 Comment: The case is also examined by Dr. Montenegro, who concurs with the diagnoses. . 02 Electronically signed: . Mane Bartlett MD, Pathologist NPI- [id number] . 01 Gross description: . SEE FROZEN SECTION GROSS DESCRIPTION . A. Initial dictation to be done by pathologist . Additional pharmaceutical representative sections are submitted as follows: . A2-A5 additional pharmaceutical representative sections of nodule, following light decalcification A6 uninvolved parenchyma A7-A17 remainder of capsule submitted from inferior to superior aspects. . B. The specimen is received in formalin, labeled "Moe Poole, right thyroid". Received is a 17 g unoriented thyroid lobe measuring 6.0 x 3.9 x 2.0 cm in greatest dimensions. The capsule is intact displaying a slight amount of overlying adhesions. The specimen is inked blue. Sectioning reveals a well-demarcated white-torrez, partially calcified solid nodule measuring 1.6 x 1.3 x 1.1 cm in greatest dimensions, which grossly abuts the inked capsule. There are several additional pale torrez to pink-torrez nodules present ranging in size from 0.3 to 0.5 cm in maximum dimensions. The remainder of the specimen is comprised of normal red-brown thyroid parenchyma. The specimen is submitted representatively as follows: . B1-B4 entire solid nodule, following light decalcification B5-B6 pharmaceutical representative sections of other nodules B7-B24 remainder of capsule. (CAA; 06/10/2019) QAC/LBQ . 02 Pathologist provided ICD-10: C73, E04.1 . 02 CPT . 590056, 041231, 811274, [id number] Specimen Comment: A courtesy copy of this report has been sent to Specimen Comment: [phone]. Specimen Comment: Report sent to DR SINGH [facility]formed at: [facility] [address] [facility] [address], [place] [id number] MD Zoltan Dunham MD Phone: [phone] Performed at: 02 [facility] [address] [place], [place] [id number] MD Mane Bartlett MD Phone: [phone]
== END 2019-06-10 18:37 | disposition home or self-care (01) ==
LOC: SURG 11:00 → 4 NORTH 16:59 → INTOOBSV 16:59
PROVIDERS: ADMIT Otolaryngology; ATTEND Otolaryngology
DX: E04.2 Nontoxic multinodular goiter (principal); Z98.890 Other specified postprocedural states
CPT/HCPCS: 36415; 60240; 80048; 82310; 83970; 85007; 85025; 96365; 96375; 96376; A7015; G0378; G0379; J0171; J0330; J0696; J1100; J2001; J2250; J2370; J2405; J2704; J3010; J3490; J7120; Q0163; 88305; 88307; 88331

== ENCOUNTER → 2019-06-18 | Outpatient (CLI) | payer OTHER ==
[2019-06-10 15:00] VITALS: BP 136/65
[~2019-06-18] MED LIST changes: -BACITRACIN 50,000 UNIT VIAL. IRR ONE; -BACITRACIN TOPICAL OINT 14GM TUBE. TP ONE; +CALC0.25 PO; +CALC200T23 PO; -EPINEPHrine VIAL 30 MG/30 ML VIAL ONE; +FLUT9.9S NS; +GLEEVEC400 MG PO; -HYDROmorphone 2 MG/ML VIAL IV PRN; +LEVO175T2 PO; -LIDOCAINE 1% PF 2 ML VIAL. ID PRN; -LIDOCAINE 1%/EPI 1:100,000 20 ML VIAL. ONE; -LIDOCAINE 4% KIT 4 ML SOLUTION. TP ONE; -MORPHINE SULFATE 2 MG/ML VIAL. IV PRN; -ONDANSETRON PF 4 MG/2 ML VIAL. IV PRN; -PROCHLORPERAZINE 10 MG/2 ML VIAL. IV PRN; -REMIFENTANIL 1 MG VIAL. IV ONE; -fentaNYL PF VIAL 100 MCG/2 ML VIAL IV PRN
--- NOTE | 2019-06-18 15:56 | RAD ---
Examination: Lower Extremity Venous Doppler Ultrasound History: Right leg swelling Comparison: None Procedure: West scale, color flow 2D and spectal waveform analysis images are obtained with and without compression in the area of the common femoral vein, superficial femoral vein - femoral vein junction, main femoral vein (superficial femoral vein) and popliteal vein. Veins of the proximal calf are also imaged. Findings: There is normal duplex flow, color flow and compressibility of all visualized vein segments. No evidence of deep venous thrombus is present. Impression: No evidence of DVT in the right lower extremity venous system. Electronically signed by: Chris Miranda MD (06/18/2019 3:53 PM) [place] [id number]
== END | disposition home or self-care (01) ==
LOC: US 14:54
PROVIDERS: ATTEND Internal Medicine
DX: M79.604 Pain in right leg (principal); R22.41 Localized swelling, mass and lump, right lower limb
CPT/HCPCS: 93971

== ENCOUNTER → 2019-09-23 | Outpatient (CLI) | payer OTHER ==
[~2019-09-23] MED LIST changes: +CONTRAST GIVEN. MC PRN; +IOHEXOL 240 MG/ML 50ML VIAL. PO ONE; +IOHEXOL 300 MG/ML 100ML VIAL. IV ONE
--- NOTE | 2019-09-23 17:40 | KCIC ---
CT CHEST ABD PELVIS W/CONTRAST Indication: GIST Technique: Postcontrast CT imaging was performed of the chest, abdomen, pelvis, multiplanar reconstruction images submitted. Oral contrast was also given. One or more of the following individualized dose reduction techniques were utilized for this examination: 1. Automated exposure control 2. Adjustment of the mA and/or kV according to patient size 3. Use of iterative reconstruction technique. Comparison: 01/14/2019 CHEST: Findings: Small 0.4 cm right lower lobe pulmonary nodule image 40 series 2 is similar in size although somewhat more dense centrally. 0.6 cm focus of subsolid groundglass density of the left upper lobe image 32 is similar. Subtle groundglass density of the right lower lobe image 48 is stable, no defined border. No new suspicious pulmonary nodularity is identified. There is again coronary calcification. Thoracic aortic caliber is within normal limits, no intraluminal flap. No new significantly enlarged nodes are identified of the chest. There are again old posterior left ninth and 10th rib fractures. There is multilevel thoracic degenerative disc disease. IMPRESSION: 1. There is no new pulmonary nodularity, stable foci of nodularity as stated. 2. There is coronary calcification. Abdomen pelvis FINDINGS: Both kidneys enhance, no hydronephrosis. There are again cysts of the bilateral kidneys. There is again strandy change of the bilateral perinephric fat. There is no adrenal nodularity. Gallbladder is present without obvious intraluminal abnormality by CT. No new focal abnormality is identified of the liver or pancreas. Bowel is not significantly dilated. There is no free fluid or free air. 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 There is decreased strandy change of the left upper quadrant fat. No new discrete mass or fluid collection is identified. There is a small accessory spleen, unchanged. There is no new significant lymphadenopathy. There is lumbar dextroscoliosis. There is multilevel lumbar degenerative disc disease. There is multilevel facet degenerative change, grade 1 anterior spondylolisthesis L4-5. IMPRESSION: 1. Strandy change of left quadrant fat has decreased, no new discrete mass or fluid collection. 2. There are bilateral renal cysts seen previously. Electronically signed by: Thompson Guzman MD (09/23/2019 5:37 PM) [email or web address]
== END | disposition home or self-care (01) ==
LOC: KCIC CT 10:26
PROVIDERS: ATTEND Internal Medicine Hematology & Oncology
DX: C49.A2 Gastrointestinal stromal tumor of stomach (principal); N28.1 Cyst of kidney, acquired; R91.1 Solitary pulmonary nodule; I25.10 Atherosclerotic heart disease of native coronary artery without angina pectoris; M51.36 Other intervertebral disc degeneration, lumbar region; M43.16 Spondylolisthesis, lumbar region; I10 Essential (primary) hypertension; Z87.891 Personal history of nicotine dependence
CPT/HCPCS: 71260; 74177; Q9966; Q9967

== ENCOUNTER → 2020-04-01 | Outpatient (CLI) | payer MEDICARE ==
[~2020-04-01] MED LIST changes: +MECL-75 PO; -MECL12.52 PO; +MECL12.573 PO; -MECL25TA3 PO
--- NOTE | 2020-04-01 14:02 | RAD ---
EXAM: CT Chest, Abdomen, and Pelvis with IV contrast INDICATION: Stomach cancer TECHNIQUE: Multi-detector row CT images were acquired from the thoracic inlet through the ischial tuberosities with the use of IV contrast. Sagittal and coronal images were acquired from the transaxial data. All CT scans performed at this facility utilize dose optimization techniques as appropriate to the exam, including the following: Automated exposure control and adjustment of the mA and/or KV according to patient size (this includes techniques or standardized protocols for targeted exams where dose is indication/reason for exam). IV CONTRAST: Administered ORAL CONTRAST: Administered COMPARISON: 09/23/2019 and 02/28/[address] FINDINGS: CHEST: CARDIOVASCULAR: Coronary artery calcifications. Normal caliber thoracic aorta. Normal heart size. MEDIASTINUM & DEUCE: No adenopathy or masses. Thyroid is not well seen.. LUNGS: Stable 4 mm peripheral right lower lobe pulmonary nodule (image 40 of series 2) no new nodules or masses. Lungs otherwise clear. PLEURAL SPACE: No pleural effusions or pneumothorax. OSSEOUS & SOFT TISSUE: Unremarkable ABDOMEN/PELVIS: LIVER: Unremarkable BILIARY SYSTEM: Gallbladder is unremarkable. Bile ducts are not dilated. PANCREAS: Unremarkable SPLEEN: Absent. There is a nodule in the splenic fossa measuring 1.4 cm, compatible with a splenule. ADRENALS: Unremarkable KIDNEYS & URETERS: 2.3 cm exophytic lesion in the midpole left kidney (measuring 6 Hounsfield units on the precontrast comparison exam of 02/28/2018) appears to enhance (with Hounsfield units of 36 on this postcontrast study). Additional lower density lesions in both kidneys are unchanged and appear compatible with small cysts. BLADDER: Unremarkable REPRODUCTIVE ORGANS: Surgical clip in the right spermatic cord, suggestive of previous mastectomy. GASTROINTESTINAL: Stable surgical changes from partial resection of the gastric fundus with no developing soft tissue mass or luminal irregularity suspicious for local tumor recurrence. No findings of bowel obstruction, perforation or acute inflammation. The appendix is normal MESENTERY/PERITONEUM/RETROPERITONEUM: Unremarkable VASCULAR: Scattered atherosclerotic calcifications. LYMPH NODES: Multiple prominent but not pathologically enlarged retroperitoneal lymph nodes, primarily along the left periaortic nodes these measure approximate 55 mm in short axis diameter and have not significantly enlarged in the interval. OSSEOUS & SOFT TISSUES: Rightward convexity scoliotic curvature of the lumbar spine and degenerative changes. Old healed fractures of the posterior left ninth and 10th ribs. No acute or aggressive osseous lesions. IMPRESSION: 1. Stable postoperative changes from partial gastrectomy and splenectomy with no evidence of local recurrence or convincing evidence of active metastatic disease. 2. An exophytic 2.3 cm lesion in the midpole left kidney appears to enhance between the precontrast images of 2 years ago and the current examination. An indolent neoplasm is not excluded. Attention on follow-up is recommended. Electronically signed by: Arvin Cevallos MD (04/01/2020 1:59 PM) [id number]
== END | disposition home or self-care (01) ==
LOC: CT 10:16
PROVIDERS: ATTEND Internal Medicine Hematology & Oncology
DX: C16.9 Malignant neoplasm of stomach, unspecified (principal); I25.10 Atherosclerotic heart disease of native coronary artery without angina pectoris; I70.90 Unspecified atherosclerosis; R91.1 Solitary pulmonary nodule; D73.89 Other diseases of spleen; N28.89 Other specified disorders of kidney and ureter; M47.816 Spondylosis without myelopathy or radiculopathy, lumbar region; M43.8X6 Other specified deforming dorsopathies, lumbar region; Z90.81 Acquired absence of spleen
CPT/HCPCS: 71260; 74177; Q9966; Q9967

== ENCOUNTER → 2020-09-21 | Outpatient (CLI) | payer MEDICARE ==
[~2020-09-21] MED LIST changes: +AMLO-187 PO; -AMLO10TA8 PO; -CONTRAST GIVEN. MC PRN
[2020-09-21 10:27] LABS: CREATININE 0.8 mg/dL (0.7-1.3); GFR 96.1
--- NOTE | 2020-09-21 16:23 | RAD ---
PQRS Compliance Statement: One or more of the following individualized dose reduction techniques were utilized for this examination: 1. Automated exposure control 2. Adjustment of the mA and/or kV according to patient size 3. 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 Instructions: Comparison: CT chest abdomen and pelvis with contrast April 01, 2020. Technique: Helical CT imaging of the abdomen and pelvis is performed after 75 cc of Omnipaque 300 IV contrast. Oral contrast also administered. Findings: No adenopathy in the chest. The great vessels are stable. There is coronary artery disease, three-vessel. The cardiac size is normal, no pericardial effusion. Central airways are patent. There is no pleural abnormality. No consolidation is identified. The liver, gallbladder, pancreas, and adrenal glands are normal. Postsurgical change of the proximal stomach is redemonstrated. 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 Soft tissue nodule upper splenic fossa is likely a splenule, unchanged. Severe atherosclerotic calcification of the abdominal aorta, no aneurysm. Small right renal cysts are stable, do not require follow-up. There is no hydronephrosis. Exophytic left renal lesion that is greater in attenuation than simple fluid is stable. There is no small bowel obstruction. The appendix is normal. No colon wall thickening is seen. No abdominal adenopathy or free fluid. Urinary bladder is normal. Prostate and seminal vesicles are normal. No pelvic free fluid. Bilateral inguinal lymph nodes may be reactive. Small area of sclerosis of the L3 vertebral body is stable. Mild grade 1 anterolisthesis of L4 on L5. Multilevel vacuum disc phenomenon. Thoracic spine alignment is maintained. There are left posterior inferior old rib fractures. IMPRESSION: 1. No evidence of recurrent or metastatic disease. 2. Interval stability of indeterminate left renal lesion. Suggest continued attention on follow-up. Electronically signed by: Keshawn Abebe MD (09/21/2020 4:20 PM) [id number]
== END ==
LOC: CT 09:59
PROVIDERS: ATTEND Internal Medicine Hematology & Oncology
DX: C49.A2 Gastrointestinal stromal tumor of stomach (principal); I70.0 Atherosclerosis of aorta; M43.16 Spondylolisthesis, lumbar region; N28.1 Cyst of kidney, acquired; G95.89 Other specified diseases of spinal cord
CPT/HCPCS: 36415; 71260; 74177; 82565; 84520; Q9966; Q9967

== ENCOUNTER → 2020-12-28 | Outpatient (CLI) | payer MEDICARE ==
[~2020-12-28] MED LIST changes: -IOHEXOL 300 MG/ML 100ML VIAL. IV ONE; +LIDOCAINE 2%/EPI 1:100,000 20 ML VIAL. ONE; -MECL12.573 PO; +MECL12.582 PO; +MIDAZOLAM HCL/PF 5 MG/5 ML VIAL. ONE; +fentaNYL PF VIAL 100 MCG/2 ML VIAL ONE; +methylPREDNISolone SOD SUCC PF 125 MG/2 ML VIAL. ONE
--- NOTE | 2020-12-28 17:50 | RAD ---
EXAM: CT Abdomen and Pelvis without IV contrast INDICATION: Reason: RUQ PAIN RLQ PAIN / Spl. Instructions: omni 240 50ml / History: TECHNIQUE: Multi-detector row CT images were acquired from the lung bases through the abdomen and pel vis without the use of IV contrast. Sagittal and coronal images were acquired from the transaxial shama a. All CT scans performed at this facility utilize dose optimization techniques as appropriate to the exam, including the following: Automated exposure control and adjustment of the mA and/or KV accordi ng to patient size (this includes techniques or standardized protocols for targeted exams where dose is indication/reason for exam). ORAL CONTRAST: None COMPARISON: Contrast-enhanced chest abdomen pelvis CT of 09/21/2020 FINDINGS: The absence of IV contrast limits evaluation of soft tissue pathology. LOWER CHEST: Unremarkable LIVER: Unremarkable BILIARY SYSTEM: Gallbladder is unremarkable. Bile ducts are not dilated. PANCREAS: Unremarkable SPLEEN: Unremarkable ADRENALS: Unremarkable KIDNEYS & URETERS: Exuberant bilateral perinephric soft tissue stranding is present, slightly greate r on the right than on the left. No hydronephrosis and no radiopaque stones in the urinary tract are identified although calcifications of the right renal pelvis are seen, suggestive of vascular calcifi cations. A low-density partially exophytic lesion in the right kidney measuring 2 cm is compatible wi th a cyst that requires no additional imaging follow-up. A smaller 1.5 cm similar lesion at the infer ior pole right kidney is also noted, similarly unremarkable. There is a 2.6 cm dense mass in the lyn nephric fat on the left kidney (image 29 of series 2) that is incompletely characterized but could re present a hemorrhagic cyst. BLADDER: Unremarkable REPRODUCTIVE ORGANS: Unremarkable GASTROINTESTINAL: Stomach and small bowel are unremarkable. There is nonspecific wall thickening in t he large bowel that is new or more apparent in the interval. The appendix is normal. MESENTERY/PERITONEUM/RETROPERITONEUM: Unremarkable VASCULAR: Scattered aortic calcifications with mild tortuosity. LYMPH NODES: No adenopathy OSSEOUS & SOFT TISSUES: Unremarkable IMPRESSION: 1. There is bilateral perinephric soft tissue stranding greater on the right base is nonspecific. Thi s could reflect chronic renal disease but pyelonephritis can appear similar. Correlate clinically. 2. There is mild nonspecific wall thickening in the ascending colon. In the setting of previous medic al therapy for malignancy, consider drug-related colitis versus infectious or inflammatory colitis. N o bowel perforation, obstruction or evidence of abscess. Electronically signed by: Arvin Cevallos MD (12/28/2020 5:47 PM) [id number]
== END ==
LOC: CT 08:02
PROVIDERS: ATTEND Internal Medicine
DX: R10.31 Right lower quadrant pain (principal); R10.11 Right upper quadrant pain; Q25.46 Tortuous aortic arch; I70.0 Atherosclerosis of aorta
CPT/HCPCS: 74176; Q9966